=== PATIENT | male | born 1950 | race Caucasian/White ===

== ENCOUNTER → 2023-12-11 14:43 | Outpatient (REF) | payer MEDICARE, OTHER, SELFPAY ==
[2023-12-11 09:53] LABS: % Basophils 0.4 % (0-2); % Eosinophils 1.7 % (0-6); % Immature Granulocytes 0.2 % (0-0.5); % Lymphocytes 32.6 % (20.5-51.1); % Monocytes 12.5 % (1.7-9.3); % Neutrophils 52.6 % (42.2-75.2); Absolute Eosinophils 0.1 10^3/uL (0-0.7); Absolute Lymphocytes 1.5 10^3/uL (1.2-3.4); Absolute Monocytes 0.6 10^3/uL (0.1-0.6); Absolute Neutrophils 2.5 10^3/uL (1.4-6.5); Hematocrit 38.1 % (39.0-52.0); Hemoglobin 13.2 g/dL (13.0-18.0); Mean Corp Hgb Conc. 34.6 g/dL (33.0-37.0); Mean Corpuscular Hgb 31.5 pg (27.0-31.0); Mean Corpuscular Volume 90.9 fL (80.0-94.0); Mean Platelet Volume 10.1 fL (7.4-10.4); Nucleated Red Blood Cells % 0 % (-); Platelet Count 177 10^3/uL (130-400); Red Blood Cell Count 4.19 10^6/uL (4.70-6.10); Red Cell Dist. Width 12.3 % (11.5-14.5); White Blood Cell Count 4.7 10^3/uL (4.8-10.8)
[2023-12-11 10:20] LABS: Iron 113 ug/dl (49-181)
[2023-12-11 10:29] LABS: Percent Saturation 42 % (20-50); Total Iron Binding Capacity 267 ug/dl (261-462)
[2023-12-11 10:48] LABS: CEA 2.82 ng/ml; PSA, Total - Diagnostic < 0.06 ng/ml (0.0-4.0)
[2023-12-11 10:55] LABS: Ferritin 69.6 ng/ml (17.9-464.0)
== END ==
LOC: OIDL 14:43
PROVIDERS: ATTENDING PHYSICIAN Internal Medicine Hematology & Oncology
DX: C20 Malignant neoplasm of rectum (principal); C61 Malignant neoplasm of prostate
CPT/HCPCS: 82378; 82728; 83540; 83550; 84153; 85025

== ENCOUNTER 2023-12-21 05:53 | Day surgery (SDC) | payer MEDICARE, OTHER, SELFPAY ==
[2023-12-21 06:46] VITALS: BMI 25.0
[2023-12-21 07:00] VITALS: BP 146/77
[2023-12-21 07:18] VITALS: BMI 25.0
[2023-12-21 09:31] VITALS: BP 105/77
[2023-12-21 09:46] VITALS: BP 123/72
== END 2023-12-21 10:13 | disposition home or self-care (01) ==
LOC: SDS 05:53
PROVIDERS: ATTENDING PHYSICIAN Internal Medicine Gastroenterology
DX: Z12.11 Encounter for screening for malignant neoplasm of colon (principal); Z85.048 Personal history of other malignant neoplasm of rectum, rectosigmoid junction, and anus; K57.30 Diverticulosis of large intestine without perforation or abscess without bleeding; K64.0 First degree hemorrhoids; K62.89 Other specified diseases of anus and rectum; D12.3 Benign neoplasm of transverse colon; K63.5 Polyp of colon
CPT/HCPCS: 45385; 45380; 88305

== ENCOUNTER 2024-01-05 07:12 | Outpatient (REF) | payer MEDICARE, OTHER, SELFPAY ==
[2024-01-05] VITALS (15 sets, daily range): BP systolic 58–147; BP diastolic 71–87
[2024-01-05 07:49] LABS: INR 0.96; PT 12.6 Sec (11.4-14.6)
== END 2024-01-05 11:35 | disposition home or self-care (01) ==
LOC: RADI 07:12
PROVIDERS: ATTENDING PHYSICIAN Internal Medicine Hematology & Oncology; FAMILY PHYSICIAN Nurse Practitioner Family
DX: C78.7 Secondary malignant neoplasm of liver and intrahepatic bile duct (principal); D68.8 Other specified coagulation defects; Z85.048 Personal history of other malignant neoplasm of rectum, rectosigmoid junction, and anus; Z85.46 Personal history of malignant neoplasm of prostate
CPT/HCPCS: 88307; 36415; 47000; 71045; 76942; 85610; 88333; 88341; 88342; 99152; 99153

== ENCOUNTER → 2024-01-10 07:42 | Outpatient (REF) | payer MEDICARE, OTHER, SELFPAY | LOC: MRI 07:42 | PROVIDERS: ATTENDING PHYSICIAN Internal Medicine Hematology & Oncology; FAMILY PHYSICIAN Nurse Practitioner Family | DX: C20 Malignant neoplasm of rectum (principal); C61 Malignant neoplasm of prostate | CPT/HCPCS: 74183; A9575 ==

== ENCOUNTER → 2024-01-19 08:39 | Outpatient (REF) | payer MEDICARE, OTHER, SELFPAY ==
[2024-01-19 09:22] LABS: % Basophils 0.4 % (0-2); % Eosinophils 1.3 % (0-6); % Immature Granulocytes 0.2 % (0-0.5); % Lymphocytes 30.8 % (20.5-51.1); % Monocytes 10.3 % (1.7-9.3); Absolute Eosinophils 0.1 10^3/uL (0-0.7); Absolute Lymphocytes 1.5 10^3/uL (1.2-3.4); Absolute Monocytes 0.5 10^3/uL (0.1-0.6); Absolute Neutrophils 2.7 10^3/uL (1.4-6.5); Hemoglobin 12.7 g/dL (13.0-18.0); Mean Corp Hgb Conc. 34.3 g/dL (33.0-37.0); Mean Corpuscular Hgb 31.1 pg (27.0-31.0); Mean Corpuscular Volume 90.7 fL (80.0-94.0); Nucleated Red Blood Cells % 0 % (-); Platelet Count 170 10^3/uL (130-400); Red Blood Cell Count 4.08 10^6/uL (4.70-6.10); Red Cell Dist. Width 12.3 % (11.5-14.5); White Blood Cell Count 4.8 10^3/uL (4.8-10.8)
[2024-01-19 09:44] LABS: ALT (SGPT) 19 U/L (0-50); AST (SGOT) 25 U/L (17-59); Albumin 4.1 g/dl (3.5-5.0); Alkaline Phosphatase 85 U/L (38-126); Blood Urea Nitrogen 24 mg/dl (9-20); Calcium 9.8 mg/dl (8.4-10.2); Carbon Dioxide 27 mmol/L (22-30); Chloride 107 mmol/L (98-107); Glucose 122 mg/dl (70-99); Potassium 4.1 mmol/L (3.5-5.1); Sodium 141 mmol/L (135-145); Total Bilirubin 0.6 mg/dl (0.2-1.3); Total Protein 6.8 g/dl (6.3-8.2); eGFR > 60.00
== END ==
LOC: REG 08:39
PROVIDERS: ATTENDING PHYSICIAN Internal Medicine Hematology & Oncology; FAMILY PHYSICIAN Nurse Practitioner Family
DX: C20 Malignant neoplasm of rectum (principal); C61 Malignant neoplasm of prostate
CPT/HCPCS: 36415; 80053; 82378; 85025

== ENCOUNTER → 2024-01-24 11:58 | Outpatient (REF) | payer MEDICARE, OTHER, SELFPAY | LOC: DHCBC/DCA 11:58 | PROVIDERS: ATTENDING PHYSICIAN Internal Medicine; FAMILY PHYSICIAN Nurse Practitioner Family | DX: R06.02 Shortness of breath (principal); I48.0 Paroxysmal atrial fibrillation; I49.3 Ventricular premature depolarization; R94.31 Abnormal electrocardiogram [ECG] [EKG]; R07.9 Chest pain, unspecified | CPT/HCPCS: 78452; 93017; A9500 ==

== ENCOUNTER → 2024-01-26 08:09 | Outpatient (REF) | payer MEDICARE, OTHER, SELFPAY | LOC: DHCBC MAIN 08:09 | PROVIDERS: ATTENDING PHYSICIAN Internal Medicine; FAMILY PHYSICIAN Nurse Practitioner Family | DX: R06.02 Shortness of breath (principal); I48.0 Paroxysmal atrial fibrillation; I49.3 Ventricular premature depolarization | CPT/HCPCS: 93306 ==

== ENCOUNTER → 2024-02-02 06:35 | Outpatient (REF) | payer MEDICARE, OTHER, SELFPAY ==
[2024-02-02 07:21] LABS: % Basophils 0.4 % (0-2); % Eosinophils 1.2 % (0-6); % Immature Granulocytes 6.8 % (0-0.5); % Lymphocytes 31.4 % (20.5-51.1); % Monocytes 13.3 % (1.7-9.3); % Neutrophils 46.9 % (42.2-75.2); Absolute Eosinophils 0.1 10^3/uL (0-0.7); Absolute Immature Granulocytes 0.6 10^3/uL (0-0.05); Absolute Lymphocytes 2.6 10^3/uL (1.2-3.4); Absolute Monocytes 1.1 10^3/uL (0.1-0.6); Absolute Neutrophils 3.9 10^3/uL (1.4-6.5); Hematocrit 36.6 % (39.0-52.0); Hemoglobin 12.4 g/dL (13.0-18.0); Mean Corp Hgb Conc. 33.9 g/dL (33.0-37.0); Mean Corpuscular Volume 91.5 fL (80.0-94.0); Mean Platelet Volume 10.5 fL (7.4-10.4); Nucleated Red Blood Cells % 0.2 % (-); Platelet Count 154 10^3/uL (130-400); Red Cell Dist. Width 12.7 % (11.5-14.5); White Blood Cell Count 8.2 10^3/uL (4.8-10.8)
[2024-02-02 07:54] LABS: ALT (SGPT) 24 U/L (0-50); AST (SGOT) 27 U/L (17-59); Albumin 4.2 g/dl (3.5-5.0); Alkaline Phosphatase 119 U/L (38-126); Blood Urea Nitrogen 19 mg/dl (9-20); Calcium 9.8 mg/dl (8.4-10.2); Carbon Dioxide 29 mmol/L (22-30); Chloride 106 mmol/L (98-107); Glucose 104 mg/dl (70-99); Potassium 4.4 mmol/L (3.5-5.1); Sodium 144 mmol/L (135-145); Total Bilirubin 0.4 mg/dl (0.2-1.3); Total Protein 6.7 g/dl (6.3-8.2); eGFR > 60.00
== END ==
LOC: REG 06:35
PROVIDERS: ATTENDING PHYSICIAN Internal Medicine Hematology & Oncology; FAMILY PHYSICIAN Nurse Practitioner Family; REFERRING PHYSICIAN Internal Medicine
DX: C20 Malignant neoplasm of rectum (principal); C61 Malignant neoplasm of prostate
CPT/HCPCS: 36415; 80053; 85025

== ENCOUNTER → 2024-02-16 06:57 | Outpatient (REF) | payer MEDICARE, OTHER, SELFPAY ==
[2024-02-16 07:43] LABS: ALT (SGPT) 28 U/L (0-50); AST (SGOT) 23 U/L (17-59); Albumin 3.9 g/dl (3.5-5.0); Alkaline Phosphatase 128 U/L (38-126); Blood Urea Nitrogen 19 mg/dl (9-20); Carbon Dioxide 28 mmol/L (22-30); Chloride 106 mmol/L (98-107); Glucose 95 mg/dl (70-99); Potassium 3.5 mmol/L (3.5-5.1); Sodium 141 mmol/L (135-145); Total Bilirubin 0.3 mg/dl (0.2-1.3); Total Protein 6.3 g/dl (6.3-8.2); eGFR > 60.00
[2024-02-16 07:46] LABS: % Basophils 0.6 % (0-2); % Eosinophils 1.4 % (0-6); % Immature Granulocytes 6.4 % (0-0.5); % Lymphocytes 25.9 % (20.5-51.1); % Monocytes 17.4 % (1.7-9.3); % Neutrophils 48.3 % (42.2-75.2); Absolute Eosinophils 0.1 10^3/uL (0-0.7); Absolute Immature Granulocytes 0.5 10^3/uL (0-0.05); Absolute Lymphocytes 1.9 10^3/uL (1.2-3.4); Absolute Monocytes 1.3 10^3/uL (0.1-0.6); Absolute Neutrophils 3.5 10^3/uL (1.4-6.5); Hematocrit 32.6 % (39.0-52.0); Hemoglobin 11.2 g/dL (13.0-18.0); Mean Corp Hgb Conc. 34.4 g/dL (33.0-37.0); Mean Corpuscular Hgb 31.6 pg (27.0-31.0); Mean Corpuscular Volume 92.1 fL (80.0-94.0); Nucleated Red Blood Cells % 0 % (-); Platelet Count 147 10^3/uL (130-400); Red Blood Cell Count 3.54 10^6/uL (4.70-6.10); Red Cell Dist. Width 13.5 % (11.5-14.5); White Blood Cell Count 7.2 10^3/uL (4.8-10.8)
== END ==
LOC: REG 06:57
PROVIDERS: ATTENDING PHYSICIAN Internal Medicine Hematology & Oncology; FAMILY PHYSICIAN Nurse Practitioner Family; REFERRING PHYSICIAN Internal Medicine
DX: C20 Malignant neoplasm of rectum (principal); C61 Malignant neoplasm of prostate
CPT/HCPCS: 36415; 80053; 85025

== ENCOUNTER → 2024-02-20 15:26 | Outpatient (REF) | payer MEDICARE, OTHER, SELFPAY ==
[2024-02-20 10:04] LABS: CEA 1.48 ng/ml
== END ==
LOC: OIDL 15:26
PROVIDERS: ATTENDING PHYSICIAN Internal Medicine Hematology & Oncology
DX: C20 Malignant neoplasm of rectum (principal)
CPT/HCPCS: 82378

== ENCOUNTER → 2024-03-01 06:27 | Outpatient (REF) | payer MEDICARE, OTHER, SELFPAY ==
[2024-03-01 08:18] LABS: Hematocrit 35.1 % (39.0-52.0); Hemoglobin 11.3 g/dL (13.0-18.0); Mean Corp Hgb Conc. 32.2 g/dL (33.0-37.0); Mean Corpuscular Hgb 31.2 pg (27.0-31.0); Mean Platelet Volume 11.5 fL (7.4-10.4); Platelet Count 175 10^3/uL (130-400); Red Blood Cell Count 3.62 10^6/uL (4.70-6.10); Red Cell Dist. Width 15.1 % (11.5-14.5); White Blood Cell Count 8.1 10^3/uL (4.8-10.8)
[2024-03-01 08:53] LABS: Absolute Neutrophils -Man Diff 5.5 10^3/uL (1.4-6.5); Band Neutrophils 11 % (0-3); Lymphocytes 21 % (20-51); Monocytes 11 % (2-9); Normal RBC Morphology Yes; Platelets Checked Yes; Segmented Neutrophils 57 % (42-75); Total Cells Counted 100
[2024-03-01 09:12] LABS: ALT (SGPT) 30 U/L (0-50); AST (SGOT) 25 U/L (17-59); Albumin 3.9 g/dl (3.5-5.0); Alkaline Phosphatase 165 U/L (38-126); Blood Urea Nitrogen 17 mg/dl (9-20); Calcium 9.6 mg/dl (8.4-10.2); Carbon Dioxide 29 mmol/L (22-30); Chloride 107 mmol/L (98-107); Glucose 103 mg/dl (70-99); HDL Cholesterol 38 mg/dl; LDL Cholesterol, Calculated 77 mg/dl; Potassium 4.9 mmol/L (3.5-5.1); Sodium 141 mmol/L (135-145); Total Bilirubin 0.4 mg/dl (0.2-1.3); Total Cholesterol 128 mg/dl (50-199); Total Protein 6.3 g/dl (6.3-8.2); Triglyceride 67 mg/dl (10-149); Very Low Density Lipoprotein 13 mg/dl (0-30); eGFR > 60.00
== END ==
LOC: REG 06:27
PROVIDERS: ATTENDING PHYSICIAN Internal Medicine Hematology & Oncology; FAMILY PHYSICIAN Nurse Practitioner Family; REFERRING PHYSICIAN Internal Medicine
DX: C20 Malignant neoplasm of rectum (principal); C61 Malignant neoplasm of prostate; E78.5 Hyperlipidemia, unspecified
CPT/HCPCS: 36415; 80053; 80061; 85025

== ENCOUNTER → 2024-03-05 13:31 | Outpatient (REF) | payer MEDICARE, OTHER, SELFPAY ==
[2024-03-05 12:03] LABS: Protein/creatinine Ratio 0.7; Urine Protein 14 mg/dl
== END ==
LOC: OIDL 13:31
PROVIDERS: ATTENDING PHYSICIAN Nurse Practitioner Adult Health
DX: C20 Malignant neoplasm of rectum (principal)
CPT/HCPCS: 82570; 84156

== ENCOUNTER → 2024-03-15 06:28 | Outpatient (REF) | payer MEDICARE, OTHER, SELFPAY ==
[2024-03-15 07:42] LABS: % Basophils 0.9 % (0-2); % Eosinophils 1.7 % (0-6); % Immature Granulocytes 0.7 % (0-0.5); % Lymphocytes 19.2 % (20.5-51.1); % Monocytes 14.5 % (1.7-9.3); Absolute Basophils 0.1 10^3/uL (0-0.2); Absolute Eosinophils 0.1 10^3/uL (0-0.7); Absolute Immature Granulocytes 0.1 10^3/uL (0-0.05); Absolute Lymphocytes 1.6 10^3/uL (1.2-3.4); Absolute Monocytes 1.2 10^3/uL (0.1-0.6); Absolute Neutrophils 5.3 10^3/uL (1.4-6.5); Hematocrit 35.4 % (39.0-52.0); Hemoglobin 11.5 g/dL (13.0-18.0); Mean Corp Hgb Conc. 32.5 g/dL (33.0-37.0); Mean Corpuscular Hgb 30.8 pg (27.0-31.0); Mean Corpuscular Volume 94.9 fL (80.0-94.0); Mean Platelet Volume 11.3 fL (7.4-10.4); Nucleated Red Blood Cells % 0 % (-); Platelet Count 158 10^3/uL (130-400); Red Blood Cell Count 3.73 10^6/uL (4.70-6.10); Red Cell Dist. Width 15.9 % (11.5-14.5); White Blood Cell Count 8.5 10^3/uL (4.8-10.8)
[2024-03-15 08:37] LABS: ALT (SGPT) 29 U/L (0-50); AST (SGOT) 24 U/L (17-59); Albumin 4.1 g/dl (3.5-5.0); Alkaline Phosphatase 181 U/L (38-126); Blood Urea Nitrogen 23 mg/dl (9-20); Calcium 9.7 mg/dl (8.4-10.2); Carbon Dioxide 24 mmol/L (22-30); Chloride 106 mmol/L (98-107); Glucose 101 mg/dl (70-99); Potassium 4.6 mmol/L (3.5-5.1); Sodium 141 mmol/L (135-145); Total Bilirubin 0.4 mg/dl (0.2-1.3); Total Protein 6.6 g/dl (6.3-8.2); eGFR > 60.00
== END ==
LOC: REG 06:28
PROVIDERS: ATTENDING PHYSICIAN Internal Medicine Hematology & Oncology; FAMILY PHYSICIAN Internal Medicine
DX: C20 Malignant neoplasm of rectum (principal); C61 Malignant neoplasm of prostate
CPT/HCPCS: 36415; 80053; 85025

== ENCOUNTER → 2024-03-29 06:29 | Outpatient (REF) | payer MEDICARE, OTHER, SELFPAY ==
[2024-03-29 08:10] LABS: % Basophils 0.7 % (0-2); % Eosinophils 1.3 % (0-6); % Immature Granulocytes 0.9 % (0-0.5); % Lymphocytes 16.1 % (20.5-51.1); % Monocytes 11.4 % (1.7-9.3); % Neutrophils 69.6 % (42.2-75.2); Absolute Basophils 0.1 10^3/uL (0-0.2); Absolute Eosinophils 0.1 10^3/uL (0-0.7); Absolute Immature Granulocytes 0.1 10^3/uL (0-0.05); Absolute Lymphocytes 1.5 10^3/uL (1.2-3.4); Absolute Neutrophils 6.3 10^3/uL (1.4-6.5); Hematocrit 33.4 % (39.0-52.0); Mean Corp Hgb Conc. 32.9 g/dL (33.0-37.0); Mean Corpuscular Hgb 31.9 pg (27.0-31.0); Mean Corpuscular Volume 96.8 fL (80.0-94.0); Mean Platelet Volume 12.1 fL (7.4-10.4); Nucleated Red Blood Cells % 0 % (-); Platelet Count 121 10^3/uL (130-400); Red Blood Cell Count 3.45 10^6/uL (4.70-6.10); Red Cell Dist. Width 16.1 % (11.5-14.5); White Blood Cell Count 9.1 10^3/uL (4.8-10.8)
[2024-03-29 09:11] LABS: ALT (SGPT) 31 U/L (0-50); AST (SGOT) 23 U/L (17-59); Albumin 4.2 g/dl (3.5-5.0); Alkaline Phosphatase 170 U/L (38-126); Blood Urea Nitrogen 28 mg/dl (9-20); Calcium 9.5 mg/dl (8.4-10.2); Carbon Dioxide 26 mmol/L (22-30); Chloride 107 mmol/L (98-107); Glucose 97 mg/dl (70-99); Sodium 142 mmol/L (135-145); Total Bilirubin 0.4 mg/dl (0.2-1.3); Total Protein 6.6 g/dl (6.3-8.2); eGFR > 60.00
== END ==
LOC: REG 06:29
PROVIDERS: ATTENDING PHYSICIAN Internal Medicine Hematology & Oncology; FAMILY PHYSICIAN Internal Medicine
DX: C20 Malignant neoplasm of rectum (principal); C61 Malignant neoplasm of prostate
CPT/HCPCS: 36415; 80053; 85025

== ENCOUNTER → 2024-04-12 07:33 | Outpatient (REF) | payer MEDICARE, OTHER, SELFPAY ==
[2024-04-12 08:30] LABS: % Basophils 0.5 % (0-2); % Lymphocytes 15.3 % (20.5-51.1); % Monocytes 10.8 % (1.7-9.3); % Neutrophils 71.4 % (42.2-75.2); Absolute Basophils 0.1 10^3/uL (0-0.2); Absolute Eosinophils 0.1 10^3/uL (0-0.7); Absolute Immature Granulocytes 0.1 10^3/uL (0-0.05); Absolute Lymphocytes 1.8 10^3/uL (1.2-3.4); Absolute Monocytes 1.3 10^3/uL (0.1-0.6); Absolute Neutrophils 8.2 10^3/uL (1.4-6.5); Hematocrit 35.7 % (39.0-52.0); Hemoglobin 11.6 g/dL (13.0-18.0); Mean Corp Hgb Conc. 32.5 g/dL (33.0-37.0); Mean Corpuscular Hgb 31.7 pg (27.0-31.0); Mean Corpuscular Volume 97.5 fL (80.0-94.0); Mean Platelet Volume 11.4 fL (7.4-10.4); Nucleated Red Blood Cells % 0 % (-); Platelet Count 145 10^3/uL (130-400); Red Blood Cell Count 3.66 10^6/uL (4.70-6.10); Red Cell Dist. Width 17.5 % (11.5-14.5); White Blood Cell Count 11.6 10^3/uL (4.8-10.8)
[2024-04-12 08:54] LABS: ALT (SGPT) 36 U/L (0-50); AST (SGOT) 28 U/L (17-59); Albumin 4.1 g/dl (3.5-5.0); Alkaline Phosphatase 184 U/L (38-126); Blood Urea Nitrogen 17 mg/dl (9-20); Calcium 9.5 mg/dl (8.4-10.2); Carbon Dioxide 28 mmol/L (22-30); Chloride 106 mmol/L (98-107); Glucose 95 mg/dl (70-99); Potassium 4.5 mmol/L (3.5-5.1); Sodium 143 mmol/L (135-145); Total Bilirubin 0.3 mg/dl (0.2-1.3); Total Protein 6.4 g/dl (6.3-8.2); eGFR > 60.00
== END ==
LOC: REG 07:33
PROVIDERS: ATTENDING PHYSICIAN Internal Medicine Hematology & Oncology; REFERRING PHYSICIAN Internal Medicine
DX: C20 Malignant neoplasm of rectum (principal); C61 Malignant neoplasm of prostate
CPT/HCPCS: 36415; 80053; 85025

== ENCOUNTER → 2024-04-18 07:32 | Outpatient (REF) | payer MEDICARE, OTHER, SELFPAY | LOC: MRI 07:32 | PROVIDERS: ATTENDING PHYSICIAN Surgery; FAMILY PHYSICIAN Nurse Practitioner Family; REFERRING PHYSICIAN Internal Medicine Hematology & Oncology | DX: D37.6 Neoplasm of uncertain behavior of liver, gallbladder and bile ducts (principal) | CPT/HCPCS: 74183; A9575 ==

== ENCOUNTER → 2024-04-26 06:22 | Outpatient (REF) | payer MEDICARE, OTHER, SELFPAY ==
[2024-04-26 07:40] LABS: Hematocrit 35.9 % (39.0-52.0); Hemoglobin 11.9 g/dL (13.0-18.0); Mean Corp Hgb Conc. 33.1 g/dL (33.0-37.0); Mean Corpuscular Hgb 33.1 pg (27.0-31.0); Mean Platelet Volume 11.9 fL (7.4-10.4); Platelet Count 130 10^3/uL (130-400); Red Blood Cell Count 3.59 10^6/uL (4.70-6.10); Red Cell Dist. Width 16.6 % (11.5-14.5); White Blood Cell Count 6.4 10^3/uL (4.8-10.8)
[2024-04-26 08:16] LABS: ALT (SGPT) 24 U/L (0-50); AST (SGOT) 21 U/L (17-59); Albumin 4.3 g/dl (3.5-5.0); Alkaline Phosphatase 167 U/L (38-126); Blood Urea Nitrogen 20 mg/dl (9-20); Calcium 9.7 mg/dl (8.4-10.2); Carbon Dioxide 28 mmol/L (22-30); Chloride 106 mmol/L (98-107); Glucose 103 mg/dl (70-99); Potassium 4.4 mmol/L (3.5-5.1); Sodium 142 mmol/L (135-145); Total Bilirubin 0.3 mg/dl (0.2-1.3); Total Protein 6.7 g/dl (6.3-8.2); eGFR > 60.00
== END ==
LOC: REG 06:22
PROVIDERS: ATTENDING PHYSICIAN Internal Medicine Hematology & Oncology; OTHER PHYSICIAN Internal Medicine; REFERRING PHYSICIAN Surgery
DX: C20 Malignant neoplasm of rectum (principal); C61 Malignant neoplasm of prostate
CPT/HCPCS: 36415; 80053; 85027

== ENCOUNTER → 2024-04-30 11:03 | Outpatient (REF) | payer MEDICARE, OTHER, SELFPAY | LOC: HWRCS 11:03 | PROVIDERS: ATTENDING PHYSICIAN Nurse Practitioner; FAMILY PHYSICIAN Nurse Practitioner Family | DX: I42.0 Dilated cardiomyopathy (principal); E78.00 Pure hypercholesterolemia, unspecified; I48.0 Paroxysmal atrial fibrillation | CPT/HCPCS: 93306 ==

== ENCOUNTER → 2024-05-08 06:29 | Day surgery (SDC) | payer MEDICARE, OTHER, SELFPAY | LOC: GI 06:29 | PROVIDERS: ATTENDING PHYSICIAN Surgery | DX: Z08 Encounter for follow-up examination after completed treatment for malignant neoplasm (principal); Z85.048 Personal history of other malignant neoplasm of rectum, rectosigmoid junction, and anus | CPT/HCPCS: 45330 ==

== ENCOUNTER → 2024-05-17 06:35 | Outpatient (REF) | payer MEDICARE, OTHER, SELFPAY ==
[2024-05-17 07:51] LABS: % Basophils 0.5 % (0-2); % Eosinophils 0.9 % (0-6); % Immature Granulocytes 0.3 % (0-0.5); % Lymphocytes 18.7 % (20.5-51.1); % Monocytes 13.4 % (1.7-9.3); % Neutrophils 66.2 % (42.2-75.2); Absolute Eosinophils 0.1 10^3/uL (0-0.7); Absolute Lymphocytes 1.2 10^3/uL (1.2-3.4); Absolute Monocytes 0.9 10^3/uL (0.1-0.6); Absolute Neutrophils 4.3 10^3/uL (1.4-6.5); Hematocrit 33.4 % (39.0-52.0); Hemoglobin 11.2 g/dL (13.0-18.0); Mean Corp Hgb Conc. 33.5 g/dL (33.0-37.0); Mean Corpuscular Hgb 32.7 pg (27.0-31.0); Mean Corpuscular Volume 97.4 fL (80.0-94.0); Nucleated Red Blood Cells % 0 % (-); Platelet Count 175 10^3/uL (130-400); Red Blood Cell Count 3.43 10^6/uL (4.70-6.10); Red Cell Dist. Width 15.2 % (11.5-14.5); White Blood Cell Count 6.5 10^3/uL (4.8-10.8)
[2024-05-17 08:14] LABS: ALT (SGPT) 20 U/L (0-50); AST (SGOT) 24 U/L (17-59); Albumin 4.1 g/dl (3.5-5.0); Alkaline Phosphatase 92 U/L (38-126); Blood Urea Nitrogen 17 mg/dl (9-20); Calcium 9.4 mg/dl (8.4-10.2); Carbon Dioxide 25 mmol/L (22-30); Chloride 104 mmol/L (98-107); Glucose 99 mg/dl (70-99); Potassium 4.5 mmol/L (3.5-5.1); Sodium 138 mmol/L (135-145); Total Bilirubin 0.6 mg/dl (0.2-1.3); Total Protein 6.4 g/dl (6.3-8.2); eGFR > 60.00
== END ==
LOC: REG 06:35
PROVIDERS: ATTENDING PHYSICIAN Internal Medicine Hematology & Oncology; FAMILY PHYSICIAN Nurse Practitioner Family; OTHER PHYSICIAN Surgery; REFERRING PHYSICIAN Internal Medicine
DX: C20 Malignant neoplasm of rectum (principal); C61 Malignant neoplasm of prostate
CPT/HCPCS: 36415; 80053; 85025

== ENCOUNTER 2024-06-25 08:58 | Inpatient (IN) | payer MEDICARE, OTHER, SELFPAY ==
[2024-06-25] VITALS (13 sets, daily range): BP systolic 126–164; BP diastolic 59–91; BMI 24.6
[2024-06-25] MEDS: HEPARIN 5000 UNITS SC (09:33)
[2024-06-25] MEDS: NEURONTIN 300 MG PO (09:33)
[2024-06-25] MEDS: NORMOSOL-R/PLASMALYTE-A 1000 IV (09:42)
--- NOTE | 2024-06-25 12:24 | CON.INTV ---
Consultation
Consultation Request
Date/Time Consultation Requested: 06/25/2024
Date/Time Consultation Performed: 06/25/2024 - 1220
Requesting Provider: Dr. Good
Performing Provider: Dr. Deleon
Reason for Consultation: s/p liver resection
Medical History
-
Chief Complaint: Elective liver resection
History of Present Illness:
73-year-old male with a past medical history of synchronous rectal cancer + prostate cancer (Dx in 2021) s/p total neoadjuvant therapy + chemotherapy/XRT currently on Lupron hypercholesterolemia, dilated cardiomyopathy, and paroxysmal A-fib on
Eliquis who presents for liver resection. Whole-body PET/CT from 12/20/2023 showed a 3.4cm FDG avid lesion in the right hepatic lobe consistent with metastatic disease. On 01/05/[address]-guided liver biopsy which was consistent with
metastatic colorectal adenocarcinoma. Subsequent abdominal MRI on 01/10/2024 showed a solitary posterior right hepatic lobe metastatic lesion measuring up to 3.4 cm with no additional suspicious hepatic lesions. Follow-up MRI of the abdomen on
04/18/2024 showed interval decrease in size of right hepatic lesion now measuring 1.7 cm. He is chemotherapy is currently on hold for liver resection. He has met with surgical oncologist Dr. Good on 05/24/2024 and reviewed the risks and benefits of
hepatic resection. Today he underwent liver resection with no immediate complications and was transferred to the ICU postoperatively. P[employer] Up Copy Camera Operator services now consulted for additional management/recommendations.
When I saw the patient he was in bed in no acute distress. Heart rate 69, saturating 93% on room air, with BP via NIBP: 130/80 and BP via left radial A-line: 151/66. He has some tenderness in his right upper quadrant but denies chest pain, [place],
shortness of breath, back pain, nausea, fevers or chills.
PMHx: Synchronous rectal cancer + prostate cancer (Dx in 2021) s/p total neoadjuvant therapy + chemotherapy/XRT currently on Lupron, hypercholesterolemia, dilated cardiomyopathy, paroxysmal A-fib (s/p bowel prep for c-scope) on Eliquis
PSHx: Hernia repair as a child, polypectomy, prostate biopsy (November 2021)
Past Medical History
Past Medical History: Other (Above as per HPI)
Past Surgical History: Other (Above as per HPI)
Social History
Tobacco: Former Smoker (Quit on 03/07/2014 with 40 pack-year Hx (1PPD x 40 years))
Alcohol: Occasional
Drug: None
Family History
Family History: CAD (Father + maternal grandfather) and Other (Mother: Alzheimer's dementia)
Allergies / Home Medications
Allergies
Allergy/AdvReac Type Severity Reaction Status Date / Time
aspirin Allergy baby Verified 06/25/24 09:00
aspirin -
'just
doesn't
feel good'
oxaliplatin Allergy Unknown Verified 06/25/24 09:00
Home Medications
�Medication �Instructions �Recorded �Confirmed �Last Taken �Type
leuprolide acetate (6 month) 45 mg 3.75 mg IM [id number] 04/08/22 05/23/24 12/12/23 History
intramuscular syringe kit (Lupron
Depot)
apixaban 2.5 mg tablet (Eliquis) 5 mg PO BID 06/25/24 06/25/24 06/22/24 History
lidocaine-prilocaine 2.5 %-2.5 % 1 applic topical PRN PRN numbing 06/25/24 06/25/24 06/25/24 07:30 History
topical cream
lisinopril 5 mg tablet 5 mg PO DAILY 06/25/24 06/25/24 06/25/24 07:30 History
metoprolol succinate 25 mg capsule 25 mg PO BID 06/25/24 06/25/24 06/25/24 07:30 History
sprinkle, ext. release 24 hr
rosuvastatin 10 mg tablet 10 mg PO DAILY 06/25/24 06/25/24 06/24/24 08:00 History
Review of Systems
-
History Source: Patient
All other systems: Negative unless noted
Vitals / Labs / Diagnostic Testing
Vital Signs
Temp Pulse Resp BP Pulse Ox
96.9 F L 66 16 164/91 100
06/25/24 09:23 06/25/24 09:23 06/25/24 09:23 06/25/24 09:23 06/25/24 09:23
Diagnostic Testing:
Physical Exam
-
HEENT: Normocephalic and Anicteric
Cardiovascular: S1/S2 and Peripheral Edema (negative)
Respiratory: Clear, Wheeze (negative), Rales (negative), Rhonchi (negative) and Non-Labored Respirations
GI: Soft, Non Distended, Tender (RUQ) and Normal Bowel Sounds
Neurology: Awake, Alert and Tremors (negative)
Skin: Warm and Dry
General: Respiratory Distress (negative), Chills (negative) and Sweats (negative)
Assessment
-
Assessment: 73-year-old male with a past medical history of synchronous rectal cancer + prostate cancer (Dx in 2021) s/p total neoadjuvant therapy + chemotherapy/XRT currently on Lupron hypercholesterolemia, dilated cardiomyopathy, and paroxysmal
A-fib on Eliquis who presents for liver resection. Whole-body PET/CT from 12/20/2023 showed a 3.4cm FDG avid lesion in the right hepatic lobe consistent with metastatic disease. On 01/05/[address]-guided liver biopsy which was
consistent with metastatic colorectal adenocarcinoma. Subsequent abdominal MRI on 01/10/2024 showed a solitary posterior right hepatic lobe metastatic lesion measuring up to 3.4 cm with no additional suspicious hepatic lesions. Follow-up MRI of the
abdomen on 04/18/2024 showed interval decrease in size of right hepatic lesion now measuring 1.7 cm. He is chemotherapy is currently on hold for liver resection. He has met with surgical oncologist Dr. Good on 05/24/2024 and reviewed the risks and
benefits of hepatic resection. Today he underwent liver resection with no immediate complications and was transferred to the ICU postoperatively. P[employer] Up Copy Camera Operator services now consulted for additional management/recommendations.
Chronic conditions SIGNAL FITTER: Synchronous rectal cancer + prostate cancer (Dx in 2021) s/p total neoadjuvant therapy + chemotherapy/XRT currently on Lupron, hypercholesterolemia, dilated cardiomyopathy/HFrEF, paroxysmal A-fib (s/p bowel prep for c-scope)
on Eliquis
Impression:
#Metastatic colorectal adenocarcinoma with liver metastasis s/p segment VII hepatic resection (POD #0)
#Synchronous rectal cancer + prostate cancer (diagnosed in 2021) s/p JAKE + chemotherapy/XRT currently on Lupron
#Paroxysmal A-fib (s/p bowel prep for colonoscopy) on Eliquis
#Former tobacco smoker (62-cypa-ryoq history, quit March 2014)
#Chronic HFrEF (LVEF: 20-25% via TTE from 04/30/2024)
Plan:
- Postoperative management as per surgical oncology
- Pain control
- Operative report from surgical oncology reviewed
- Aspiration precautions
- Follow up pathology from today's OR case
- Limit IVF given his chronic systolic CHF
- Maintain A-line and remove tomorrow assuming he remains HDN stable
- Maintain SpO2 >90-94%
- Maintain MAP>65
- Replete electrolytes with K>4, Mg>2
- Maintain euglycemia with goal BG 140-180
- prn nebulized bronchodilators - not currently bronchospastic
- Incentive spirometer encouraged 10x per hr for at least 4 hrs a day
- DVT ppx: SCDs for now; would start chemical DVT ppx tomorrow assuming clear to do so with surgery; he is Rx Eliquis at home
Of note, given his tobacco smoking history he may qualify for annual LDCT chest for lung cancer screening purposes. However given his active colorectal adenocarcinoma with mets to the liver, unclear if he qualifies for screening. Would defer to
his oncologist (Dr. Baker) in regards to future imaging studies of his chest that are obtained.
Critical care statement: A total of 40 minutes of critical care time was provided for this patient today. This includes management of unstable vital signs, evaluation of the patient at bedside, reviewing the patient's pertinent medical records
including radiographs, microbiology, laboratory evaluations, and discussion with primary team, consultants, pharmacy, nutrition, physical therapy, case management, charge nurse, critical care nursing, and respiratory therapy.
Data:
Abdominal MRI 04/18/2024:
Interval decrease in size of right hepatic lesion, which was previously biopsied, with pathology indicating metastatic colorectal adenocarcinoma.
Multiple stable hepatic cysts.
The pancreatic duct is slightly dilated within the head and neck of the pancreas, stable. Not mentioned above, there is a 5 mm cystic lesion within the body of the pancreas, which is stable. In a 73-year-old, consider follow-up MRI of the
abdomen/MRCP in 2 years with attention to the pancreas
--- NOTE | 2024-06-25 13:43 | W.IMMPOSTOP ---
Surgical Immed Post Op Note
-
Date of Operation: June 25, 2024
Preoperative Diagnosis: Segment VII hepatic metastatic tumor - C787
Postoperative Diagnosis: Same
Surgeon: Taz Good M.D.
Operation: Segment VII hepatic resection - [id number]
Anesthesia: General Anesthesia
Estimated Blood Loss: Minimal
Drains: None
Specimen: Hepatic segment VII containing the tumor with two deep margins
Findings: Hepatic segment VII tumor
Complications: None
Procedure:
The patient was taken to the operating room and placed in the usual supine position. After adequate general endotracheal anesthesia was established, the patient's abdomen was prepped and draped in the usual sterile fashion. At this time, a right
subcostal incision was made with a #10 blade, and this was taken through the skin into the subcutaneous tissue. The fascia was divided, and underlying muscles were also divided using electrocautery, and the abdomen was entered. Upon entering the
abdominal cavity, an exploration was performed. The liver was palpated. An obvious tumor in the segment 7 was identified. There were no other liver tumors or any evidence of peritoneal disease. At this time, an intraoperative ultrasound was
performed, and the tumor in segment 8 was identified and localized. Next, the right liver lobe was mobilized medially by placing the packs behind the liver and above the liver to bring segment 7 down and towards the middle. Another ultrasound was
performed and identified the tumor. At this time, segment 7 resection was performed by using an [employer] bipolar radiofrequency energy device by transecting the liver parenchyma and the vessels were carefully ligated using Harmonic Scalpel. The
big vessels were also ligated with #3-0 chromic suture. The liver segment VII tumor was completely resected and sent to pathology for gross margins, which revealed clean margins, except it came close to the 12 o'clock deep margins. The additional
margins were taken from the area. Hemostasis was performed by spraying the defect with Tisseel.
At this time, incision was closed. The posterior fascia was approximated with 1 Vicryl in a running fashion. The muscles were reapproximated with a 1 Vicryl in a running fashion. The anterior fascia was also approximated with 1 Vicryl in a running
fashion. The subcutaneous tissue was reapproximated with #3-0 Vicryl in a running fashion. The skin was approximated with #4-0 Monocryl in a running subcuticular fashion. The Steri-Strips and sterile dressings were applied. The patient was extubated
without any problems. The patient was transferred to the recovery room. The final needle, sponge, and instrument counts were correct.
--- NOTE | 2024-06-25 14:00 | HPS.HSE ---
Addendum entered and electronically signed by Héctor Greenwood MD 06/25/24 15:50:
73-year-old male with a past medical history of prostate cancer, rectal cancer with metastases to the liver, paroxysmal atrial fibrillation on Eliquis, dilated cardiomyopathy, and hypertension was placed in postsurgical observation after having
segment [address] Good on 06/25/24. Patient seen and examined in the PACU. Currently, he does report incisional abdominal pain. He reports having night sweats and intermittent fevers at home, was told that this is from his chemo.
Denies nausea, vomiting. No lightheadedness, no dizziness.
His hemoglobin is 10.8, with mild blood loss anemia from his surgery.
BMP reviewed, unremarkable.
AST and ALT are mildly elevated, suspect from his known metastatic liver disease versus postsurgical inflammation.
Monitor overnight, trend LFTs, provide pain control.
Cardiology following for cardiomyopathy and atrial fibrillation.
Recommend resuming Eliquis when cleared by Dr. Good.
I have personally seen and examined the patient, and agree with the plan of care as documented by JAYSON Horta
Advance care planning discussed, patient is a full code.
All other issues as outlined by the advanced care practitioner.
Total time spent to see the patient on the floor, examine the patient, review data and lab results, discuss treatment plan with patient, nursing staff around 76 minutes.
Original Note:
Family Physician
-
Family Physician: JAYSON Solis
Chief Complaint
-
Postop hepatic segment resection secondary to rectal cancer
History of Present Illness
73-year-old male status post hepatic segment resection for metastatic rectal cancer today by Dr. Good. According to postop records there is minimal blood loss 250 cc. Patient is awake alert oriented x 3 with occasional drowsiness as he is status
post anesthesia. Reports only mild discomfort over his right upper abdomen at surgical site. He states he held his Eliquis for the past 3 days he reports he received a subcutaneous heparin injection this a.m. prior to surgery. He was due to have
the initial surgery 45 days ago but had held his medications for unknown reason surgery was postponed for 30 days he states. He reports he was diagnosed with prostate and rectal cancer in 2021 status post radiation to both areas along with
chemotherapy. He reports a break from chemotherapy in end of December 2023 followed by an MRI of his abdomen which showed a mass in his liver. He went back on chemotherapy for 8 sessions which he finished in April 2024. He denies current headache,
fever, chills, chest pain, palpitations, shortness breath, cough, nausea, vomiting, diarrhea, urinary symptoms.
He is past medical history of prostate and rectal cancer Dx 2021 with rectal cancer mets to liver confirmed via biopsy on 01/05/2024, paroxysmal A-fib, dilated cardiomyopathy EF 20%.
Medical History
Past Medical History
Past Medical History: Reports Other
Additional Past Medical History:
prostate and rectal cancer Dx 2021 with rectal cancer mets to liver confirmed via biopsy on 01/05/2024
Prostate cancer status post radiation and chemo 2022
Rectal cancer status post radiation and chemo 2022
Liver mets Dx December status post chemo 8 sessions April 2024
Paroxysmal A-fib
dilated cardiomyopathy EF 20%
HTN
Past Surgical History: Reports Other
Additional Past Surgical History:
Hernia repair as child
Polypectomy
Hepatic segment VII resection for metastatic rectal cancer.
Social History
Tobacco: Former Smoker (30-year 1 pack a day quit 10 years ago)
Alcohol: None
Personal:
Living: With Family
Employment: Retired
Family History
Family History: Other ( Mother Alzheimer's, smoker, father 93 CAD-stents)
Allergies / Home Medications
Allergies reflects when Allergies were last updated in [facility].
Home Medications with original date entered in [facility]
Allergy/Medication List:
Allergies
Allergy/AdvReac Type Severity Reaction Status Date / Time
aspirin Allergy baby Verified 06/25/24 09:00
aspirin -
'just
doesn't
feel good'
oxaliplatin Allergy Unknown Verified 06/25/24 09:00
Home Medications
leuprolide acetate (6 month) 45 mg intramuscular syringe kit (Lupron Depot) 3.75 mg IM [id number] 04/08/22
apixaban 2.5 mg tablet (Eliquis) 5 mg PO BID 06/25/24
lidocaine-prilocaine 2.5 %-2.5 % topical cream 1 applic topical PRN PRN numbing 06/25/24
lisinopril 5 mg tablet 5 mg PO DAILY 06/25/24
metoprolol succinate 25 mg capsule sprinkle, ext. release 24 hr 25 mg PO BID 06/25/24
rosuvastatin 10 mg tablet 10 mg PO DAILY 06/25/24
Review of Systems
-
History Source: Patient
A 12 point ROS was completed and negative except as noted: Yes
Constitutional: Denies Fever, Fatigue or Chills
EENT: Denies Sore Throat or Runny Nose
Respiratory: Denies Cough or Trouble Breathing
Cardiac: Denies Chest Pain, Diaphoresis or Syncope
Abdomen/GI: Reports Abdominal Pain (mild right upper quadrant at surgical site); Denies Nausea, Vomiting, Diarrhea, Constipated, Bloody Stools or Black Stools
: Denies Dysuria, Frequency, Flank Pain, Incontinence, Difficulty Voiding or Urgency
Musculoskeletal: Denies Joint Pain or Edema
Skin: Denies Itching or Rash
Neurological: Denies Dizzy, Headache or Weakness
Endocrine: Reports No Symptoms
Hematologic/Lymphatic: Reports No Symptoms
Physical Exam
Vital Signs
Vital Signs
Temp Pulse Resp BP Pulse Ox
96.9 F L 66 16 164/91 100
06/25/24 09:23 06/25/24 09:23 06/25/24 09:23 06/25/24 09:23 06/25/24 09:23
Physical Exam
General: Conversant and Pain (Mild right upper quadrant at surgical site); No Fever or Chills
HEENT: NormoCephalic, Anicteric, PERRLA, Sultana Conjunctivae, No Ptosis and Other (Dry oral mucosa)
Respiratory: Clear; No Wheezes, Rales or Rhonchi
Cardiac: S1/S2 and Regular Rhythm; No Murmur, Rub, Gallop or Peripheral Edema
Breast: Deferred by me
GI: Soft, Non Distended, Normal Bowel Sounds and Tender (Mild right upper quadrant surgical site dressing is intact no surrounding ecchymosis or drainage)
Rectal: Deferred by Provider
Genito-urinary: Deferred by me
Musculoskeletal: No Clubbing, No Cyanosis and No Edema
Skin: Warm and Dry; No Rash
Neuro: AO x 3 (Slight drowsiness post anesthesia), Cranial Nerves Intact and No Sensory Deficits; No Slurred Speech, Facial Droop, Tremors or Sedated
Psych: Calm
Impression/Plan
-
Impression/plan:
ICU post recovery
#Hepatic segment VII resection for metastatic rectal cancer
#Rectal cancer confirmed via biopsy on 01/05/2024
-Consult Dr. Good
-CBC, CMP pending
Hgb 10.2
#Hx prostate and rectal cancer Dx 2021
#Prostate and rectal cancer Dx 2021 with rectal cancer mets to liver confirmed via biopsy on 01/05/2024
#Prostate cancer status post radiation and chemo 2022
#Rectal cancer status post radiation and chemo 2022
#Liver mets Dx December status post chemo 8 sessions April 2024
-Patient on Lupron every 6 months last FINAL dose he states was on 11/02/2023-he reports he was only to be on for 2 years
#Paroxysmal A-fib
-Consult Cardiology
-Eliquis resumption per surgery/cardiology recommendations
- cont Metoprolol 25 mg twice daily with hold parameters
#Hx dilated cardiomyopathy
I/O, daily weights
2D echo 04/03/2024: Severely reduced LV SF, EF 20-25%, mild MR
#HTN
BP 144/65
-Continue lisinopril 5 mg daily, metoprolol succinate twice daily with hold parameters
-Pending bmp
#HLD
Patient stopped Crestor 10 mg daily 2 weeks ago
#Former smoker
30 years 1 pack a day quit 10 years ago
DVT prophylaxis
SCDs
Full code
--- NOTE | 2024-06-25 14:02 | CON.CAR ---
Addendum entered and electronically signed by Scott Pandya MD 06/25/24 14:38:
I saw and examined the patient.
The METAL SPRAY OPERATOR's note was reviewed and I agree with the note.
Comment: 73-year-old male with a past medical history notable for stage IIIb prostate cancer (on Lupron), rectal cancer status post FOLFOX X and XRT, dilated cardiomyopathy, paroxysmal atrial fibrillation (on apixaban), dyslipidemia, and former
smoker who presented for liver resection. There were no intraoperative complications. Cardiology was consulted to assist with cardiac care in the postoperative setting.
- GDMT initiation (resistant to medications in past)
- Eliquis once OK from surgical perspective
Original Note:
Consultation
Consultation Request
Date/Time Consultation Requested: 06/25/2024 13:50
Date/Time Consultation Performed: 06/25/2024 14:00
Requesting Provider: Dr. Good
Performing Provider: JAYSON Emery for Dr. Pandya
Reason for Consultation: Cardiac care
Medical History
-
Chief Complaint: Liver resection
History of Present Illness:
Carlos A Ahn is a 73-year-old male with a past medical history notable for stage IIIb prostate cancer (on Lupron), rectal cancer status post FOLFOX X and XRT, dilated cardiomyopathy, paroxysmal atrial fibrillation (on apixaban), dyslipidemia, and
former smoker who presented for liver resection. There were no intraoperative complications. Cardiology was consulted to assist with cardiac care in the postoperative setting. Patient seen in PACU. He is having no chest pain. He is in sinus
rhythm on telemetry. He is awake but groggy. He was able to participate in this consultation. He is not having any chest pain or shortness of breath.
Past Medical History
Past Medical History: Arrhythmias (Paroxysmal atrial fibrillation), Cancer (Prostate, rectal, liver metastasis), CHF (Dilated cardiomyopathy) and Hypercholesterolemia
Social History
Tobacco: Former Smoker
Alcohol: None
Drug: None
Family History
Family History: Reviewed & Not Pertinent
Allergies / Home Medications
Allergy/AdvReac Type Severity Reaction Status Date / Time
aspirin Allergy baby Verified 06/25/24 09:00
aspirin -
'just
doesn't
feel good'
oxaliplatin Allergy Unknown Verified 06/25/24 09:00
�Medication �Instructions �Recorded �Confirmed �Type
leuprolide acetate (6 month) 45 mg 3.75 mg IM [id number] 04/08/22 05/23/24 History
intramuscular syringe kit (Lupron
Depot)
apixaban 2.5 mg tablet (Eliquis) 5 mg PO BID 06/25/24 06/25/24 History
lidocaine-prilocaine 2.5 %-2.5 % 1 applic topical PRN PRN numbing 06/25/24 06/25/24 History
topical cream
lisinopril 5 mg tablet 5 mg PO DAILY 06/25/24 06/25/24 History
metoprolol succinate 25 mg capsule 25 mg PO BID 06/25/24 06/25/24 History
sprinkle, ext. release 24 hr
rosuvastatin 10 mg tablet 10 mg PO DAILY 06/25/24 06/25/24 History
Review of Systems
-
History Source: Patient
All other systems: Negative unless noted
Constitutional: Fatigue
EENT: No Symptoms
Respiratory: No Symptoms
Cardiac: No Symptoms
Abdomen/GI: No Symptoms
: No Symptoms
Musculoskeletal: No Symptoms
Skin: No Symptoms
Neurological: No Symptoms
Endocrine: No Symptoms
Hematologic/Lymphatic: No Symptoms
Physical Exam
Vital Signs
Temp Pulse Resp BP Pulse Ox
96.9 F L 66 16 164/91 100
06/25/24 09:23 06/25/24 09:23 06/25/24 09:23 06/25/24 09:23 06/25/24 09:23
Physical Exam
General: Well Developed, Well Nourished, No Apparent Distress and Comfortable
HEENT: Normocephalic, Anicteric and Moist Mucous Membranes
Respiratory: Clear and Non Labored Respirations
Cardiac: S1/S2 and Regular Rhythm
Breast: Deferred by me
GI: Non Distended and Normal Bowel Sounds
Rectal: Deferred by Provider
Genito-urinary: No Costovertebral Tender
Musculoskeletal: No Clubbing, No Cyanosis and No Edema
Skin: Warm and Dry
Neuro: AO x 3
Hematologic/Lymphatic: No Lymphadenopathy
Psych: Calm
Impression / Plan
-
Hepatic segment VII tumor status post resection 06/25/[address] Good
-Oncology plans to continue cycle 6 of FOLFIRI
Dilated cardiomyopathy, LVEF 20-25%
-Stable without volume overload
-GDMT as tolerated
-Beta-luz: Metoprolol succinate 25 mg BID
-NENITA I/ARB: Lisinopril 5 mg daily, Entresto was cost prohibitive
-SGLT2: Can consider, case management to [facility]
-MRA: Can consider
-ICD: TTE 3 months after maximally tolerated GDMT
-Trend daily weight, I/O during admission
Paroxysmal atrial fibrillation
-Stable in sinus rhythm, continue metoprolol succinate 25 mg twice daily if BP allows
-Oral Anticoagulation: Apixaban 5 mg twice daily on hold, resume per surgery recommendation
-[id number]: Score at least 2 (Heart failure, age 65-74)
Rectal cancer, stage IIIb with liver metastasis, sees Dr. Baker in the outpatient setting
Prostate cancer, status post bicalutamide, completed Lupron
Dyslipidemia, on rosuvastatin 10, resume when able
Former smoker, continue cessation recommended
DATA:
Transthoracic echocardiogram, 04/30/2024:
Severely reduced left ventricular systolic function.
Left ventricular ejection fraction is 20-25%.
Mild mitral regurgitation.
Right heart pressures could not be determined.
Compared to the previous report 01/26/2024 there is been a reduction in left
ventricular function. Previously estimated 35%.
[2024-06-25 14:38] LABS: Hematocrit 31.4 % (39.0-52.0); Hemoglobin 10.8 g/dL (13.0-18.0); Mean Corp Hgb Conc. 34.4 g/dL (33.0-37.0); Mean Corpuscular Hgb 31.6 pg (27.0-31.0); Mean Corpuscular Volume 91.8 fL (80.0-94.0); Mean Platelet Volume 10.2 fL (7.4-10.4); Platelet Count 147 10^3/uL (130-400); Red Blood Cell Count 3.42 10^6/uL (4.70-6.10); Red Cell Dist. Width 12.1 % (11.5-14.5); White Blood Cell Count 9.9 10^3/uL (4.8-10.8)
[2024-06-25] MEDS: DILAUDID 0.25 MG IV (14:40)
[2024-06-25 14:55] LABS: PT 14.1 Sec (11.4-14.6)
[2024-06-25 14:56] LABS: APTT 27.1 Sec (23.4-35.0)
[2024-06-25 15:04] LABS: ALT (SGPT) 359 U/L (0-50); AST (SGOT) 370 U/L (17-59); Albumin 3.3 g/dl (3.5-5.0); Alkaline Phosphatase 73 U/L (38-126); Blood Urea Nitrogen 17 mg/dl (9-20); Calcium 8.3 mg/dl (8.4-10.2); Carbon Dioxide 27 mmol/L (22-30); Chloride 107 mmol/L (98-107); Estimated Creatinine Clearance 102 ml/min; Glucose 167 mg/dl (70-99); Potassium 4.4 mmol/L (3.5-5.1); Sodium 139 mmol/L (135-145); Total Bilirubin 0.6 mg/dl (0.2-1.3); Total Protein 5.6 g/dl (6.3-8.2); eGFR > 60.00
--- NOTE | 2024-06-25 15:32 | TRANSFER ---
Transferred to ICU, VSS. Patient alert and comfortable. Dressing dry. A-line with good waveform. Lyn Sanchez RN BSN.
--- NOTE | 2024-06-25 16:28 | PTCARENOTE ---
Pt admitted to ICU bed 3372 from PACU. Sinus Rhythm. A-line intact. BP stable. SpO2 93% on room air. Reports a little pain to abdomen. Denies need for pain meds at this time. Eating clear liquid tray. Holland draining clear yellow.
[2024-06-25] MEDS: MOTRIN 400 MG PO (17:32)
[2024-06-25] MEDS: ZOFRAN 4 MG IV (17:58)
[2024-06-25] MEDS: DILAUDID 0.5 MG IV ×2 (18:35→23:10)
--- NOTE | 2024-06-25 18:45 | PTCARENOTE ---
Pt had only a few sips of broth then reported nausea. Zofran given. Pt reported it effective for relief. Dilaudid given for reported increased RUQ pain.
[2024-06-25] MEDS: TOPROL XL 25 MG PO (20:02)
--- NOTE | 2024-06-25 20:30 | PTCARENOTE ---
rec'd patient. assessment as documented. oriented x3, denies need for pain meds, admits to intermittent nausea. SR with PVCs on monitor. arterial line leveled and zeroed. on RA, denies SOB. poor appetite at this time. aquacell to incision site with
scant drainage. huerta intact. pt repositioning self, call bel within reach. care ongoing.
[2024-06-26] VITALS (7 sets, daily range): BP systolic 134–157; BP diastolic 77–86; PULSE 69–73; O2SAT 95–97; BMI 25.2
[2024-06-26] MEDS: DILAUDID 0.5 MG IV ×3 (03:59→13:37)
--- NOTE | 2024-06-26 04:23 | PTCARENOTE ---
AM labs sent. huerta care done. PRN pain meds given overnight, see MAR. pt repositioned for comfort. call burger within reach, care ongoing.
[2024-06-26 04:34] LABS: % Basophils 0.1 % (0-2); % Immature Granulocytes 0.4 % (0-0.5); % Lymphocytes 7.1 % (20.5-51.1); % Monocytes 8.8 % (1.7-9.3); % Neutrophils 83.6 % (42.2-75.2); Absolute Lymphocytes 0.6 10^3/uL (1.2-3.4); Absolute Monocytes 0.8 10^3/uL (0.1-0.6); Absolute Neutrophils 7.6 10^3/uL (1.4-6.5); Hematocrit 32.6 % (39.0-52.0); Hemoglobin 11.2 g/dL (13.0-18.0); Mean Corp Hgb Conc. 34.4 g/dL (33.0-37.0); Mean Corpuscular Hgb 32.1 pg (27.0-31.0); Mean Corpuscular Volume 93.4 fL (80.0-94.0); Mean Platelet Volume 10.4 fL (7.4-10.4); Nucleated Red Blood Cells % 0 % (-); Platelet Count 148 10^3/uL (130-400); Red Blood Cell Count 3.49 10^6/uL (4.70-6.10); Red Cell Dist. Width 11.9 % (11.5-14.5); White Blood Cell Count 9.1 10^3/uL (4.8-10.8)
[2024-06-26 04:54] LABS: ALT (SGPT) 420 U/L (0-50); AST (SGOT) 358 U/L (17-59); Albumin 3.8 g/dl (3.5-5.0); Alkaline Phosphatase 62 U/L (38-126); Blood Urea Nitrogen 21 mg/dl (9-20); Calcium 8.9 mg/dl (8.4-10.2); Carbon Dioxide 25 mmol/L (22-30); Chloride 103 mmol/L (98-107); Estimated Creatinine Clearance 102 ml/min; Glucose 159 mg/dl (70-99); Potassium 4.4 mmol/L (3.5-5.1); Sodium 140 mmol/L (135-145); Total Bilirubin 0.8 mg/dl (0.2-1.3); Total Protein 6.1 g/dl (6.3-8.2); eGFR > 60.00
[2024-06-26 07:37] LABS: Glycohemoglobin (HgbA1c) 5.3 % (4.0-5.6)
[2024-06-26] MEDS: ZESTRIL 5 MG PO (07:48)
[2024-06-26] MEDS: CRESTOR 10 MG PO (07:48)
[2024-06-26] MEDS: TOPROL XL 25 MG PO ×2 (07:49→19:25)
--- NOTE | 2024-06-26 08:00 | PTCARENOTE ---
Received pt via handoff. AOx3, MANTILLA, follows commands. NSR with PVC's, SBP 150's-160's. Pt on RA, slightly diminished. Hypoactive bowel sounds with absence of flatus. Zofran given for nausea. Holland CDI draining trent urine. Aquacell on the right
abdomen at surgical site with slight drainage. A Line through the left radial zeroed and correlate with cuff, 18G Left AC and right chest wall port. Family at bedside, will continue to monitor.
--- NOTE | 2024-06-26 08:13 | W.PN.INTV ---
Addendum entered and electronically signed by Otilio Deleon MD 06/26/24 13:58:
Total time spent today was 55 minutes for this encounter. Time includes reviewing laboratory test/imaging results, reviewing pertinent medical records, obtaining and reviewing medical history, performing an appropriate exam, ordering medications,
tests and procedures. Time also includes documentation of this encounter, coordinating patient care and communicating with other healthcare professionals. Total time does not include separately billed tests performed on this date of service.
Original Note:
Today's Communication / Plan
Recommendations
Pain control
prn Maalox vs simethicone
Currently on clear liquid diet � ADAT
Maintain SpO2 >90-94%
Encourage incentive spirometer use
Continue with ICU level care as per surgical oncology. Once transferred out of ICU to telemetry then we will sign off at that time. Please call back with any questions or concerns.
Assessment
-
Assessment: 73-year-old male with a past medical history of synchronous rectal cancer + prostate cancer (Dx in 2021) s/p total neoadjuvant therapy + chemotherapy/XRT currently on Lupron hypercholesterolemia, dilated cardiomyopathy, and paroxysmal
A-fib on Eliquis who presents for liver resection. Whole-body PET/CT from 12/20/2023 showed a 3.4cm FDG avid lesion in the right hepatic lobe consistent with metastatic disease. On 01/05/[address]-guided liver biopsy which was
consistent with metastatic colorectal adenocarcinoma. Subsequent abdominal MRI on 01/10/2024 showed a solitary posterior right hepatic lobe metastatic lesion measuring up to 3.4 cm with no additional suspicious hepatic lesions. Follow-up MRI of the
abdomen on 04/18/2024 showed interval decrease in size of right hepatic lesion now measuring 1.7 cm. He is chemotherapy is currently on hold for liver resection. He has met with surgical oncologist Dr. Good on 05/24/2024 and reviewed the risks and
benefits of hepatic resection. Today he underwent liver resection with no immediate complications and was transferred to the ICU postoperatively. Waterworks Supervisor services now consulted for additional management/recommendations.
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
on Eliquis
Impression:
#Metastatic colorectal adenocarcinoma with liver metastasis s/p segment VII hepatic resection (POD #1)
#Synchronous rectal cancer + prostate cancer (diagnosed in 2021) s/p JAKE + chemotherapy/XRT currently on Lupron
#Paroxysmal A-fib (s/p bowel prep for colonoscopy) on Eliquis
#Former tobacco smoker (32-yetc-vikp history, quit March 2014)
#Chronic HFrEF (LVEF: 20-25% via TTE from 04/30/2024)
Plan:
- Postoperative management as per surgical oncology
- Pain control
- Operative report from surgical oncology reviewed
- Aspiration precautions
- Follow up pathology from OR case
- Limit IVF given his chronic systolic CHF
- Ok to remove A-line
- Geet up OOBb as tolerated
- Simethicone/maalox for his indigestion and increased 'gas bubbles' complaint this AM
- Maintain SpO2 >90-94%
- Maintain MAP>65
- Replete electrolytes with K>4, Mg>2
- Maintain euglycemia with goal BG 140-180
- PT/OT
- prn nebulized bronchodilators - not currently bronchospastic
- Incentive spirometer encouraged 10x per hr for at least 4 hrs a day
- DVT ppx: SCDs for now; defer starting chemical DVT ppx today assuming ok to do so with surgery; he is Rx Eliquis at home
Of note, given his tobacco smoking history he may qualify for annual LDCT chest for lung cancer screening purposes. However given his active colorectal adenocarcinoma with mets to the liver, unclear if he qualifies for screening. Would defer to
his oncologist (Dr. Baker) in regards to future imaging studies of his chest that are obtained.
Continue with ICU level care as per surgical oncology. Once transferred out of ICU to telemetry then we will sign off at that time. Please call back with any questions or concerns.
Data:
Abdominal MRI 04/18/2024:
Interval decrease in size of right hepatic lesion, which was previously biopsied, with pathology indicating metastatic colorectal adenocarcinoma.
Multiple stable hepatic cysts.
The pancreatic duct is slightly dilated within the head and neck of the pancreas, stable. Not mentioned above, there is a 5 mm cystic lesion within the body of the pancreas, which is stable. In a 73-year-old, consider follow-up MRI of the
abdomen/MRCP in 2 years with attention to the pancreas
Subjective Dataa
Subjective Data
Date of Service:
Date of Service: June 26, 2024
Chief Complaint: Waterworks Supervisor Follow Up
Subjective:
Patient seen and evaluated this morning. Patient's , Mariella, at bedside. All questions were answered. Patient is resting in bed in no acute distress. He endorses abdominal discomfort with increased gas. Has reduced appetite with
intermittent nausea. Heart rate 75, saturating 96% on room air and BP 151/71.
Review of Systems
General: Other (Negative unless mentioned above)
Objective Data
Data Reviewed
Vital Signs / I&O / Oxygen:
Vital Signs
Temp Pulse Resp BP Pulse Ox
98.0 F 82 23 153/73 96
06/26/24 07:21 06/26/24 08:00 06/26/24 08:00 06/26/24 07:49 06/26/24 08:00
Intake and Output
06/25/24 06/26/24 06/27/24
06:59 06:59 06:59
Intake Total 1275 / 1275
Output Total 1190 / 1190
Balance 85 / 85
SaO2 96
Nasal Cannula flow liters per 0
minute
Physical Exam
General: Respiratory Distress (negative), Pain (abdominal discomfort/gaseous), Chills (negative), Sweats (negative) and Poor Appetite
HEENT: Normocephalic and Anicteric
Cardiovascular: S1-S2 and Peripheral Edema (negative)
Respiratory: Wheeze (negative), Crackles (negative), Rhonchi (negative) and Non-Labored Respirations
GI: Soft, Non Distended, Non Tender and Normal Bowel Sounds
Neurology: AO x 3 and Tremors (negative)
Skin: Warm, Dry and Jaundice (negative)
Labs/Micro/Reports
Lab Data
06/26/24 04:07
06/26/24 04:07
Laboratory Results
06/25/24
14:28
PT 14.1
INR 1.10
APTT 27.1
[2024-06-26] MEDS: ZOFRAN 4 MG IV (10:01)
--- NOTE | 2024-06-26 10:36 | W.PN.CD ---
Today's Communication / Plan
-
Add incentive spirometry
I think volume status is OK for early post op
Will consider IV Lasix if dyspnea worsens
Slowly add back meds for his cardiomyopathy
Impression / Plan
-
Hepatic segment VII tumor status post resection 06/25/[address] Good
-Oncology plans to continue cycle 6 of FOLFIRI
Dilated cardiomyopathy, LVEF 20-25%
-Stable without volume overload
-GDMT as tolerated
-Beta-luz: Metoprolol succinate 25 mg BID
-NENITA I/ARB: Lisinopril 5 mg daily, Entresto was cost prohibitive
-SGLT2: Can consider, case management to [facility]
-MRA: Can consider
-ICD: TTE 3 months after maximally tolerated GDMT => met cancer may temper enthusiasm for ICD
-Trend daily weight, I/O during admission
Paroxysmal atrial fibrillation
-Stable in sinus rhythm, continue metoprolol succinate 25 mg twice daily if BP allows
-Oral Anticoagulation: Apixaban 5 mg twice daily on hold, resume per surgery recommendation
-[id number]: Score at least 2 (Heart failure, age 65-74)
Rectal cancer, stage IIIb with liver metastasis, sees Dr. Baker in the outpatient setting
Prostate cancer, status post bicalutamide, completed Lupron
Dyslipidemia, on rosuvastatin 10, resume when able
Former smoker, continue cessation recommended
Subjective:
No CP. Minimal dyspnea
DATA:
Transthoracic echocardiogram, 04/30/2024:
Severely reduced left ventricular systolic function.
Left ventricular ejection fraction is 20-25%.
Mild mitral regurgitation.
Right heart pressures could not be determined.
Compared to the previous report 01/26/2024 there is been a reduction in left
ventricular function. Previously estimated 35%.
Physical Exam
Vital Signs/Labs
Vital Signs
Temp Pulse Resp BP Pulse Ox
98.0 F 65 13 153/73 94
06/26/24 07:21 06/26/24 09:00 06/26/24 09:00 06/26/24 07:49 06/26/24 09:00
06/25/24 06/26/24 06/27/24
06:59 06:59 06:59
Actual Weight 80.9 kg
06/26/24 04:07
06/26/24 04:07
PT 14.1 Sec (11.4-14.6) 06/25/24 14:28
INR 1.10 06/25/24 14:28
APTT 27.1 Sec (23.4-35.0) 06/25/24 14:28
Physical Exam
Constitutional: No acute distress
EENT: Anicteric
Cardiovascular: Rhythm & rate is regular and Pedal edema is absent
Respiratory: Respiratory effort normal, Lungs clear to auscul. and Crackles Absent
GI: Soft and Distention absent
Neuro/Psych: AO x 3
Data Reviewed
-
Date of Service: June 26, 2024
--- NOTE | 2024-06-26 12:00 | PTCARENOTE ---
All systems reassessed. Pt c/o nausea when taking in sips of water, Zofran given, will assess again. PT/OT helped pt ambulate in room and to the chair. A Line and Holland removed per orders. Pt to be transferred to [facility] floor awaiting room. Will
continue to monitor.
--- NOTE | 2024-06-26 13:10 | W.PN.GENERIC ---
Assessment / Plan
-
S/p Liver Resection POD #1
Stable. There is no evidence of bleeding
OOB and ambulate
Tsf pt to the surgical floor
Advance diet
Physician Progress Note
Subjective
Feeling nauseous with min abdominal pain.
Objective
Vital Signs
Temp Pulse Resp BP Pulse Ox
98.0 F 76 21 140/78 97
06/26/24 07:21 06/26/24 12:00 06/26/24 12:00 06/26/24 10:40 06/26/24 12:00
Lab Results
06/26/24 04:07
06/26/24 04:07
Abdomen - soft ND. Dsg - intact
--- NOTE | 2024-06-26 13:30 | W.PN.HOSP.TC ---
Addendum entered and electronically signed by Héctor Greenwood MD 06/26/24 16:10:
#Elevated liver function test/transaminitis
Possibly due to liver resection versus metastatic disease
Continue to trend
Original Note:
Today's Communication/Plan
-
see bold
Assessment / Plan
Assessment / Plan
HPI: 73-year-old male with a past medical history of prostate cancer, rectal cancer with metastases to the liver, paroxysmal atrial fibrillation on Eliquis, dilated cardiomyopathy, and hypertension was placed in postsurgical observation after having
segment [address] Good on 06/25/24. Patient seen and examined in the PACU. Currently, he does report incisional abdominal pain. He reports having night sweats and intermittent fevers at home, was told that this is from his chemo.
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
#Rectal cancer confirmed via biopsy on 01/05/2024
Appreciate fire prevention engineer and Dr. Good
Pain meds, laxatives, PT
Stable for transfer to the floors under Dr. Good, who will now assume primary attending
Medicine will no longer follow, please call with any questions or concerns
#Hx prostate and rectal cancer Dx 2021
#Prostate and rectal cancer Dx 2021 with rectal cancer mets to liver confirmed via biopsy on 01/05/2024
#Prostate cancer status post radiation and chemo 2022
#Rectal cancer status post radiation and chemo 2022
#Liver mets Dx December status post chemo 8 sessions April 2024
-Patient on Lupron every 6 months last FINAL dose he states was on 11/02/2023-he reports he was only to be on for 2 years
#Paroxysmal A-fib
-Cardiology following
-Resume Eliquis when okay with Dr. Good
-Continue metoprolol 25 mg twice daily with hold parameters
#Belching
Maalox as needed
#Hx dilated cardiomyopathy
I/O, daily weights
2D echo 04/03/2024: Severely reduced LV SF, EF 20-25%, mild MR
#HTN
BP 144/65
-Continue lisinopril 5 mg daily, metoprolol succinate twice daily with hold parameters
-Pending bmp
#HLD
Patient stopped Crestor 10 mg daily 2 weeks ago
#Former smoker
30 years 1 pack a day quit 10 years ago
DVT prophylaxis�SCDs, resume Eliquis when okay with Dr. Good
Total time spent to see the patient on the floor, examine the patient, review data and lab results, discuss treatment plan with patient, nursing staff around 40 minutes.
Physical Exam
General: No acute distress
HEENT: Normocephalic, Atraumatic, EOMI, MMM
Respiratory: Clear to Auscultation bilaterally
Cardiac: Normal S1/S2, Regular Rate and Rhythm
GI: Soft, appropriately tender, incision dressed
Extremities: No Clubbing, Cyanosis, or Edema
Neuro: Nonfocal/Grossly Intact
Anticipated Discharge: 24 - 48 hours
Subjective/Interval History
-
Date of Service: June 26, 2024
Patient reports his abdominal pain is tolerable. No fever, no vomiting.
Objective Data
-
Labs:
Laboratory Results
06/26/24
04:07
WBC 9.1
Hgb 11.2 L
Hct 32.6 L
Plt Count 148
Sodium 140
Potassium 4.4
Chloride 103
Carbon Dioxide 25
BUN 21 H
Creatinine 0.7
Glucose 159 H
Calcium 8.9
Total Bilirubin 0.8
AST 358 H
ALT 420 H
Alkaline Phosphatase 62
Vital Signs:
Vital Signs
Temp Pulse Resp BP Pulse Ox
98.0 F 76 21 140/78 97
06/26/24 07:21 06/26/24 12:00 06/26/24 12:00 06/26/24 10:40 06/26/24 12:00
I&O
06/25/24 06/26/24 06/27/24
06:59 06:59 06:59
Intake Total 1275 / 1275
Output Total 1190 / 1190 250 / 250
Balance 85 / 85 -250 / -250
--- NOTE | 2024-06-26 13:41 | CM ---
Reviewed the chart notes and spoke with the patient at the bedside. The patient resides with his spouse in a two story home with three steps to enter via the garage. The patient reports no DME/VN/SNF in the past. The patient confirmed his
pharmacy of choice is the [facility]. CM continues to be available to patient/family and is monitoring medical plan for needs at discharge.
Plan: Discharge to home when medically stable. Anticipating no needs at this time.
[2024-06-26] MEDS: MAALOX PLUS 1 TABLET PO (14:26)
[2024-06-26] MEDS: SENOKOT-S 2 TABLET PO (16:31)
[2024-06-26] MEDS: SENOKOT-S PO (19:25)
--- NOTE | 2024-06-26 20:22 | PTCARENOTE ---
rec'd patient. assessment as documented. OOB to BR with supervision. SR on monitor, frequent PVCs. SCDs on. on RA, denies SOB. denies pain at this time. poor appetite throughout day. midline aquacell dressing with scant drainage. call burger within
reach, care ongoing.
[2024-06-27] VITALS (36 sets, daily range): BP systolic 120–164; BP diastolic 80–132; BMI 25.3
[2024-06-27] MEDS: DILAUDID 0.5 MG IV (02:34)
--- NOTE | 2024-06-27 04:30 | PTCARENOTE ---
AM labs sent. heparin lock flush thru port.
[2024-06-27 04:44] LABS: Hematocrit 35.4 % (39.0-52.0); Mean Corp Hgb Conc. 33.9 g/dL (33.0-37.0); Mean Corpuscular Hgb 32.1 pg (27.0-31.0); Mean Corpuscular Volume 94.7 fL (80.0-94.0); Mean Platelet Volume 10.1 fL (7.4-10.4); Platelet Count 150 10^3/uL (130-400); Red Blood Cell Count 3.74 10^6/uL (4.70-6.10); Red Cell Dist. Width 12.1 % (11.5-14.5); White Blood Cell Count 9.5 10^3/uL (4.8-10.8)
[2024-06-27 05:02] LABS: INR 1.04; PT 13.6 Sec (11.4-14.6)
[2024-06-27 05:03] LABS: APTT 24.6 Sec (23.4-35.0)
[2024-06-27 05:07] LABS: ALT (SGPT) 412 U/L (0-50); AST (SGOT) 215 U/L (17-59); Albumin 4.1 g/dl (3.5-5.0); Alkaline Phosphatase 68 U/L (38-126); Blood Urea Nitrogen 20 mg/dl (9-20); Calcium 9.5 mg/dl (8.4-10.2); Carbon Dioxide 29 mmol/L (22-30); Chloride 100 mmol/L (98-107); Estimated Creatinine Clearance 102 ml/min; Glucose 132 mg/dl (70-99); Potassium 4.4 mmol/L (3.5-5.1); Sodium 140 mmol/L (135-145); Total Bilirubin 0.7 mg/dl (0.2-1.3); Total Protein 6.7 g/dl (6.3-8.2); eGFR > 60.00
--- NOTE | 2024-06-27 07:16 | PTCARENOTE ---
Pt awake and alert. Assisted to BR to urinate. While in the BR he spontaneously vomited moderate amount of clear emesis with orange flecks. He stated it looked like the water and sweet potato he had last night. +BSX4. Hypoactive in the right lower
quadrant. He was able to rinse his mouth out with mouth wash. Tender over abdominal incision. Aquacel dressing intact, old shadowing noted on dressing. Lungs with bibasilar crackles, reported clear frothy phlegm that started last night. Denies SOB.
Denies any fluid restriction or salt restrictions at home. RA pulse ox 95-96%. Weak pedal pulses. Left AC# 18g protective catheter flushed and patent. Right anterior chest wall SQ port capped. Reviewed the plan of care regarding pain management, and
managing his nausea around his meals. He is passing flatus, no BM since 06/25/24. Safe environment maintained. Will continue to monitor.
[2024-06-27] MEDS: ZESTRIL 5 MG PO (07:34)
[2024-06-27] MEDS: SENOKOT-S 2 TABLET PO ×2 (07:35→19:31)
[2024-06-27] MEDS: CRESTOR 10 MG PO (07:35)
[2024-06-27] MEDS: TOPROL XL 25 MG PO ×2 (07:35→09:20)
--- NOTE | 2024-06-27 08:36 | W.PN.CD ---
Today's Communication / Plan
-
increase Toprol XL
case mgmt c/s for SGLT2i pricing
resume eliquis when safe post op
Impression / Plan
-
Hepatic segment VII tumor status post resection 06/25/[address] Good
-Oncology plans to continue cycle 6 of FOLFIRI
-stable post op
Dilated cardiomyopathy, LVEF 20-25%
-Stable without volume overload
-GDMT as tolerated
-Beta-luz: increase Metoprolol succinate to 50 mg BID
-NENITA I/ARB: Lisinopril 5 mg daily, Entresto was cost prohibitive
-SGLT2: case management to [facility] (although he did not have coverage for entresto)
-MRA: will add this admission if unable to start SGLT2i
-ICD: TTE 3 months after maximally tolerated GDMT => met cancer may temper enthusiasm for ICD
-Trend daily weight, I/O during admission
Paroxysmal atrial fibrillation
-Stable in sinus rhythm, continue metoprolol succinate
-Oral Anticoagulation: Apixaban 5 mg twice daily on hold, resume when safe post op
-[id number]: Score at least 2 (Heart failure, age 65-74)
Rectal cancer, stage IIIb with liver metastasis, sees Dr. Baker in the outpatient setting
Prostate cancer, status post bicalutamide, completed Lupron
Dyslipidemia, on rosuvastatin 10, resume when able
Former smoker, continue cessation recommended
Subjective:
No CP. Minimal dyspnea
DATA:
Transthoracic echocardiogram, 04/30/2024:
Severely reduced left ventricular systolic function.
Left ventricular ejection fraction is 20-25%.
Mild mitral regurgitation.
Right heart pressures could not be determined.
Compared to the previous report 01/26/2024 there is been a reduction in left
ventricular function. Previously estimated 35%.
Physical Exam
Vital Signs/Labs
Vital Signs
Temp Pulse Resp BP Pulse Ox
99 F 97 15 163/106 95
06/27/24 03:48 06/27/24 07:35 06/27/24 06:00 06/27/24 07:35 06/27/24 06:00
06/26/24 06/27/24 06/28/24
06:59 06:59 06:59
Actual Weight 80.9 kg 81 kg
06/27/24 04:27
06/27/24 04:27
PT 13.6 Sec (11.4-14.6) 06/27/24 04:27
INR 1.04 06/27/24 04:27
APTT 24.6 Sec (23.4-35.0) 06/27/24 04:27
Physical Exam
Constitutional: No acute distress and Comfortable
EENT: Moist mucous membranes
Cardiovascular: Rhythm & rate is regular, Pedal edema is absent, JVD pressure is normal and Systolic murmur absent
Respiratory: Respiratory effort normal and Lungs clear to auscul.
GI: Soft and Distention absent
Neuro/Psych: AO x 3
Data Reviewed
-
Date of Service: June 27, 2024
Echo: Report Reviewed by me
Labs: Labs Reviewed by me
--- NOTE | 2024-06-27 09:06 | PTCARENOTE ---
Clarified Metoprolol dose with Dr. Cevallos with current HR 84, BP 131/95. Will administer as ordered. Pt is sosa the dose was increased.
[2024-06-27] MEDS: ZOFRAN 4 MG IV (09:20)
--- NOTE | 2024-06-27 09:51 | PTCARENOTE ---
Dr. Cevallos aware of weight gain and bibasilar crackles, with white frothy phlegm production since last night. No orders at this time. Will continue to monitor.
--- NOTE | 2024-06-27 11:29 | PTCARENOTE ---
He called RN into room. was holding basin to him, he had just vomited. He is reporting diaphoresis as he is wiping his brow and neck. 'I feel sweaty'. Cycled BP while I was obtaining an accu check. Glucose 146, HR then suddenly went to 208,
cough unsuccessful to break rhythm. BP elevated. Dr. Cevallos notified via TT. He is alerting the in house physician. Shortly after Dr. Clement arrived into the room. 5mg IVP Lopressor administered via right SQ port, then Amiodarone bolus 150mg IV, Pt
hr persistently JOHANNY 130's-160's. Digoxin administered as ordered.
--- NOTE | 2024-06-27 11:30 | W.PN.INTV ---
Today's Communication / Plan
Recommendations
Heart rate control while on amiodarone gtt with dig load
prn lopressor
If need better HR control then will need to start esmolol vs cardioversion if he becomes unstable
Pain control
NPO; if he vomits then insert NGT and place onto LIWS
Maintain SpO2 >90-94%
Continue with ICU level care
Assessment
-
Assessment: 73-year-old male with a past medical history of synchronous rectal cancer + prostate cancer (Dx in 2021) s/p total neoadjuvant therapy + chemotherapy/XRT currently on Lupron hypercholesterolemia, dilated cardiomyopathy, and paroxysmal
A-fib on Eliquis who presents for liver resection. Whole-body PET/CT from 12/20/2023 showed a 3.4cm FDG avid lesion in the right hepatic lobe consistent with metastatic disease. On 01/05/[address]-guided liver biopsy which was
consistent with metastatic colorectal adenocarcinoma. Subsequent abdominal MRI on 01/10/2024 showed a solitary posterior right hepatic lobe metastatic lesion measuring up to 3.4 cm with no additional suspicious hepatic lesions. Follow-up MRI of the
abdomen on 04/18/2024 showed interval decrease in size of right hepatic lesion now measuring 1.7 cm. He is chemotherapy is currently on hold for liver resection. He has met with surgical oncologist Dr. Good on 05/24/2024 and reviewed the risks and
benefits of hepatic resection. Today he underwent liver resection with no immediate complications and was transferred to the ICU postoperatively. Assorter services now consulted for additional management/recommendations.
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
on Eliquis
Impression:
#Metastatic colorectal adenocarcinoma with liver metastasis s/p segment VII hepatic resection (POD #1)
#Synchronous rectal cancer + prostate cancer (diagnosed in 2021) s/p JAKE + chemotherapy/XRT currently on Lupron
#Rapid A-fib
#Abdominal pain with post-operative ileus
#Hx of paroxysmal A-fib (s/p bowel prep for colonoscopy) on Eliquis
#Former tobacco smoker ([id number] history, quit March 2014)
#Chronic HFrEF (LVEF: 20-25% via TTE from 04/30/2024)
Plan:
- Postoperative management as per surgical oncology
- Pain control
- Operative report from surgical oncology reviewed
- Aspiration precautions
- Follow up pathology from OR case
- Limit IVF given his chronic systolic CHF
- Cardiology consulted given rapid A-fib this morning, and he is now on amiodarone and undergoing digoxin load and given prn IV lopressor
- Check BMP, Mg and PO4 and keep K>4, Mg>2 and PO4>3
- Goal HR<110
- Keep MAP>65
- Unable to use cardizem gtt given chronic systolic heart failure; if need rate control then will start esmolol gtt
- Maintain SpO2 >90-94%
- Maintain MAP>65
- Bedrest until HR is controlled for >6-12 hours
- NPO for his ileus, and continue with anti-emetics as needed; if he vomits again then insert NGT (this was reviewed with Dr. Good)
- Maintain euglycemia with goal BG 140-180
- PT/OT - not until his HR is stable
- prn nebulized bronchodilators - not currently bronchospastic
- Incentive spirometer encouraged 10x per hr for at least 4 hrs a day
- DVT ppx: Eliquis
Of note, given his tobacco smoking history he may qualify for annual LDCT chest for lung cancer screening purposes. However given his active colorectal adenocarcinoma with mets to the liver, unclear if he qualifies for screening. Would defer to
his oncologist (Dr. Baker) in regards to future imaging studies of his chest that are obtained.
Patient transferred back to the ICU this morning due to A-fib with RVR. Assorter services will continue to follow along while he remains in the ICU.
Critical care statement: A total of 41 minutes of critical care time was provided for this patient today. This includes management of unstable vital signs, evaluation of the patient at bedside, reviewing the patient's pertinent medical records
including radiographs, microbiology, laboratory evaluations, and discussion with primary team, consultants, pharmacy, nutrition, physical therapy, case management, charge nurse, critical care nursing, and respiratory therapy.
Data:
AXR 06/27/2024:
There is gas in nondilated loops of colon as well as gas in dilated loops of small bowel measuring up to 4.9 cm
The bowel gas pattern is most suggestive of small bowel obstruction.
Given the lack of colonic dilatation, Ileus is less likely but included in the differential diagnosis
Abdominal MRI 04/18/2024:
Interval decrease in size of right hepatic lesion, which was previously biopsied, with pathology indicating metastatic colorectal adenocarcinoma.
Multiple stable hepatic cysts.
The pancreatic duct is slightly dilated within the head and neck of the pancreas, stable. Not mentioned above, there is a 5 mm cystic lesion within the body of the pancreas, which is stable. In a 73-year-old, consider follow-up MRI of the
abdomen/MRCP in 2 years with attention to the pancreas
Subjective Dataa
Subjective Data
Date of Service:
Date of Service: June 27, 2024
Chief Complaint: Assorter Follow Up
Subjective:
Called back to see the patient later this morning due to rapid A-fib with heart rate in the 190s. He was upgraded back to the ICU. Patient treated with IV metoprolol, started on amiodarone drip and also dig loaded.
Patient feels 'defeated,' as he feels like he is going backwards and was looking forward to leaving the hospital and getting better. He denies chest pain, SOB, [place], fevers or chills, although he still has abdominal discomfort with occasional nausea.
He also vomited earlier today x 2 with water that he just drank, and vomitus was nonbloody. When I saw the patient, heart rate 148, saturating 98% on 3 L/min nasal cannula with BP 135/95.
Review of Systems
General: Other (Negative unless mentioned above)
Objective Data
Data Reviewed
Vital Signs / I&O / Oxygen:
Vital Signs
Temp Pulse Resp BP Pulse Ox
98.4 F 91 30 163/101 97
06/27/24 15:33 06/27/24 17:00 06/27/24 17:00 06/27/24 17:00 06/27/24 16:00
Intake and Output
06/26/24 06/27/24 06/28/24
06:59 06:59 06:59
Intake Total 1275 / 1275 960 / 960 99.9 / 99.9
Output Total 1190 / 1190 250 / 250
Balance 85 / 85 710 / 710 99.9 / 99.9
SaO2 97
Nasal Cannula flow liters per 0
minute
Physical Exam
General: Respiratory Distress (negative), Pain (abdominal discomfort/gaseous), Chills (negative) and Sweats (negative)
HEENT: Normocephalic and Anicteric
Cardiovascular: Irregular Rhythm (Irregularly irregular), Peripheral Edema (negative) and Other (Tachycardic)
Respiratory: Clear, Wheeze (negative), Crackles (negative), Rhonchi (negative) and Non-Labored Respirations
GI: Soft, Non Distended, Non Tender and Normal Bowel Sounds
Neurology: AO x 3 and Tremors (negative)
Skin: Warm, Dry and Jaundice (negative)
Labs/Micro/Reports
Lab Data
06/27/24 04:27
06/27/24 14:32
Laboratory Results
06/27/24
04:27
PT 13.6
INR 1.04
APTT 24.6
--- NOTE | 2024-06-27 11:33 | PTCARENOTE ---
Called RN into room. was holding basin to his mouth. He vomited. Pt reported diaphoresis and not feeling well. Glucose 146, HR peaked 208, EKG obtained. Pt denies palpitations. BP 163/103. Dr. Cevallos TT's these events. EKG now JOHANNY. He is
notifying the inpatient team. RN remained with pt and his .
[2024-06-27 11:46] LABS: Glucose - Point of Care 146 mg/dl (70-99)
[2024-06-27] MEDS: LOPRESSOR 5 MG IV ×2 (11:50→15:03)
[2024-06-27] MEDS: CORDARONE 103 MG IV (11:53)
--- NOTE | 2024-06-27 12:07 | W.PN.UPDATE ---
Addendum entered and electronically signed by Calixto Dunne MD 06/27/24 15:07:
Agree with below; was at bedside with PREPARING BOX TENDER to evaluate and help manage patient.
-Nausea/vomiting is likely not secondary to primary cardiac issue (atrial fibrillation with RVR); recommend management by primary Surgical team.
-Will continue to monitor heart rates closely.
Original Note:
Update Note
Progress Note Update
Our service was alerted that patient was feeling unwell and was diaphoretic and monitor revealed AFIB with RVR in 190's. BP stable. He was given a total of 5 mg IV metoprolol, 150 mg IV amiodarone, 250 mcg digoxin IV, and will be placed on IV
amiodarone drip for now. Abnormal LFT's noted, so monitor and hopefully can come off amiodarone soon. HR currently improved to 120's. Building Construction Supervisor, hospitalist, and surgeon all updated. Patient is also feeling nauseated, which will be addressed by
medical/surgical team as noted. He will remain in ICU for close monitoring.
[2024-06-27] MEDS: LANOXIN 250 MCG IV ×2 (12:08→14:02)
[2024-06-27] MEDS: CORDARONE 518 MG IV (12:28)
--- NOTE | 2024-06-27 12:39 | PTCARENOTE ---
Dr. Good at the bedside. Verified with Dr. Clmeent for Dr. Good regarding need to trend troponin due to pt intermittently hiccoughing. Will not trend per Dr. Clement as this is not ACS. Dr. Good will restart Eliquis due to JOHANNY w/RVR. Amiodarone drip
now at 1mg/min via right anterior chest wall SQ port as ordered.
--- NOTE | 2024-06-27 12:42 | W.PN.GENERIC ---
Assessment / Plan
-
S/p partial liver resection POD#2
1. Afib
since there is no evidence of bleeding, we will restart Eliquis
as per cardiology service
2. N/V/hiccups
there was no manipulation of the bowel during his surgery, so surprising he has N/V
If vomiting continues, will place a NGT
check obstruction series
may need to start IVFs but hold off given his cardiac status
any benefit of checking cardiac enz?
3. Hg stable
4. continue ICU care
Physician Progress Note
Subjective
c/o nausea and vomiting. Also has flatus. Went into atrial fibrillation
Objective
Vital Signs
Temp Pulse Resp BP Pulse Ox
98.6 F 125 17 121/103 98
06/27/24 12:03 06/27/24 12:12 06/27/24 12:12 06/27/24 12:10 06/27/24 12:12
Lab Results
06/27/24 04:27
06/27/24 04:27
Abdomen - soft. Incision - CDI
--- NOTE | 2024-06-27 12:55 | CM ---
CM was consulted for medication flaherty check.
Farxiga is $134 vs. Jardiance $130. CM made cardiology aware.
--- NOTE | 2024-06-27 14:28 | W.PN.HOSP.TC ---
Today's Communication/Plan
-
F/u Abd XR
Amio drip per cards
Resuming eliquis tonight
Assessment / Plan
Assessment / Plan
HPI: 73-year-old male with a past medical history of prostate cancer, rectal cancer with metastases to the liver, paroxysmal atrial fibrillation on Eliquis, dilated cardiomyopathy, and hypertension was placed in postsurgical observation after having
segment [address] Good on 06/25/24. Patient seen and examined in the PACU. Currently, he does report incisional abdominal pain. He reports having night sweats and intermittent fevers at home, was told that this is from his chemo.
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
#Rectal cancer confirmed via biopsy on 01/05/2024
Appreciate e business manager and Dr. Good
Pain meds, laxatives, PT
Stay in ICU secondary to rapid atrial fibrillation
#Rapid atrial fibrillation
Cardiology following, on IV amiodarone, Toprol XL increased to 50 mg twice a day
Cleared to resume Eliquis tonight
#Nausea/vomiting/abdominal pain
Likely due to postop ileus
Follow-up abdominal x-ray, consider NG tube
Add IV PPI, antiemetics as needed
#Elevated liver function test/transaminitis
Possibly due to liver resection versus metastatic disease
Continue to trend
#Hx prostate and rectal cancer Dx 2021
#Prostate and rectal cancer Dx 2021 with rectal cancer mets to liver confirmed via biopsy on 01/05/2024
#Prostate cancer status post radiation and chemo 2022
#Rectal cancer status post radiation and chemo 2022
#Liver mets Dx December status post chemo 8 sessions April 2024
-Patient on Lupron every 6 months last FINAL dose he states was on 11/02/2023-he reports he was only to be on for 2 years
#Belching
Maalox as needed
#Hx dilated cardiomyopathy
I/O, daily weights
2D echo 04/03/2024: Severely reduced LV SF, EF 20-25%, mild MR
#HTN
-Continue lisinopril 5 mg daily, metoprolol succinate twice daily with hold parameters
#HLD
Patient stopped Crestor 10 mg daily 2 weeks ago
#Former smoker
30 years 1 pack a day quit 10 years ago
DVT prophylaxis�Eliquis
Total time spent to see the patient on the floor, examine the patient, review data and lab results, discuss treatment plan with patient, nursing staff around 50 minutes.
Physical Exam
General: No acute distress
HEENT: Normocephalic, Atraumatic, EOMI, MMM
Respiratory: Clear to Auscultation bilaterally
Cardiac: Normal S1/S2, tachycardic rate, irregularly irregular
GI: distended, appropriately tender, incision dressed
Extremities: No Clubbing, Cyanosis, or Edema
Neuro: Nonfocal/Grossly Intact
Anticipated Discharge: > 48 hours
Subjective/Interval History
-
Date of Service: June 27, 2024
Patient reports nausea, vomiting, and abdominal pain. He is passing gas. Now back in rapid atrial fibrillation. No chest pain, shortness of breath, or palpitations. No fever.
Objective Data
-
Labs:
Laboratory Results
06/27/24 06/27/24
04:27 13:53
WBC 9.5
Hgb 12.0 L
Hct 35.4 L
Plt Count 150
PT 13.6
INR 1.04
APTT 24.6
Sodium 140 Pending
Potassium 4.4 Pending
Chloride 100 Pending
Carbon Dioxide 29 Pending
BUN 20 Pending
Creatinine 0.7 Pending
Glucose 132 H Pending
Calcium 9.5 Pending
Total Bilirubin 0.7
AST 215 H
ALT 412 H
Alkaline Phosphatase 68
Vital Signs:
Vital Signs
Temp Pulse Resp BP Pulse Ox
98.6 F 163 28 135/95 98
06/27/24 12:03 06/27/24 14:02 06/27/24 14:00 06/27/24 14:00 06/27/24 14:00
I&O
06/26/24 06/27/24 06/28/24
06:59 06:59 06:59
Intake Total 1275 / 1275 960 / 960
Output Total 1190 / 1190 250 / 250
Balance 85 / 85 710 / 710
[2024-06-27] MEDS: NSS (PRESERVATIVE FREE) 10 ML IV (14:47)
[2024-06-27] MEDS: PROTONIX IV 40 MG IV (14:47)
[2024-06-27] MEDS: COMPAZINE 10 MG IV (14:54)
[2024-06-27 14:55] LABS: Blood Urea Nitrogen 22 mg/dl (9-20); Calcium 9.9 mg/dl (8.4-10.2); Carbon Dioxide 28 mmol/L (22-30); Chloride 96 mmol/L (98-107); Estimated Creatinine Clearance 102 ml/min; Glucose 182 mg/dl (70-99); Magnesium 2.2 mg/dl (1.6-2.3); Phosphorus 3.7 mg/dl (2.5-4.5); Potassium 4.3 mmol/L (3.5-5.1); Sodium 139 mmol/L (135-145); eGFR > 60.00
--- NOTE | 2024-06-27 15:23 | PTCARENOTE ---
Notified via TT by Dr. Deleon to hold off on the [place] sump per Dr. Good. [place] sump tube to be inserted if he vomits again.
[2024-06-27] MEDS: D5/0.9% with KCL 20 MEQ 1000 IV (16:05)
--- NOTE | 2024-06-27 16:42 | W.PN.UPDATE ---
Update Note
Progress Note Update
Patient now back in SR. Patient with ileus per surgeon. We will keep patient on IV cardiac meds for now. Discussed with Dr. Dunne and plan for IV metoprolol 5 mg PRN, Continue IV amiodarone drip, add IV digoxin 250 mcg daily. Change digoxin and
metoprolol to PO when consistently taking PO medicines.
--- NOTE | 2024-06-27 17:33 | PTCARENOTE ---
informed me that he is non-compliant with his heart medications. His daughter stated that he only started taking them again last month. I was crystal clear to them that he MUST remain compliant with his medications.
--- NOTE | 2024-06-27 19:00 | PTCARENOTE ---
aaox3. nsr. vss. amio infusing per protocol. d5w/nss@50cc/hr, abd distended. awaiting abd xray. pt updated on plan of care. will monitor.
[2024-06-27] MEDS: ELIQUIS 5 MG PO (19:31)
--- NOTE | 2024-06-27 21:57 | PTCARENOTE ---
pt updated on plan of care via phone. pt remains comfortable and asymptomatic.
[2024-06-28] VITALS (38 sets, daily range): BP systolic 110–166; BP diastolic 59–105; BMI 24.1
[2024-06-28 05:54] LABS: Hematocrit 37.9 % (39.0-52.0); Hemoglobin 12.8 g/dL (13.0-18.0); Mean Corp Hgb Conc. 33.8 g/dL (33.0-37.0); Mean Corpuscular Hgb 31.9 pg (27.0-31.0); Mean Corpuscular Volume 94.5 fL (80.0-94.0); Mean Platelet Volume 10.5 fL (7.4-10.4); Platelet Count 175 10^3/uL (130-400); Red Blood Cell Count 4.01 10^6/uL (4.70-6.10); Red Cell Dist. Width 11.9 % (11.5-14.5); White Blood Cell Count 11.1 10^3/uL (4.8-10.8)
[2024-06-28] MEDS: LOPRESSOR 5 MG IV ×2 (06:02→17:21)
[2024-06-28 06:04] LABS: INR 1.12; PT 14.4 Sec (11.4-14.6)
[2024-06-28 06:05] LABS: APTT 29.6 Sec (23.4-35.0)
--- NOTE | 2024-06-28 06:09 | PTCARENOTE ---
hr sinus tach in 140s. pt asymptomatic. 5mg iv Lopressor given. pt now nsr in 60's. will monitor.
[2024-06-28 06:21] LABS: ALT (SGPT) 283 U/L (0-50); AST (SGOT) 101 U/L (17-59); Albumin 3.8 g/dl (3.5-5.0); Alkaline Phosphatase 71 U/L (38-126); Blood Urea Nitrogen 25 mg/dl (9-20); Calcium 9.2 mg/dl (8.4-10.2); Carbon Dioxide 26 mmol/L (22-30); Chloride 103 mmol/L (98-107); Estimated Creatinine Clearance 118 ml/min; Glucose 147 mg/dl (70-99); Potassium 4.4 mmol/L (3.5-5.1); Sodium 140 mmol/L (135-145); Total Bilirubin 0.9 mg/dl (0.2-1.3); Total Protein 6.3 g/dl (6.3-8.2); eGFR > 60.00
[2024-06-28] MEDS: PROTONIX IV 40 MG IV (08:05)
[2024-06-28] MEDS: ELIQUIS 5 MG PO ×2 (08:06→19:07)
[2024-06-28] MEDS: CRESTOR 10 MG PO (08:06)
[2024-06-28] MEDS: ZESTRIL 5 MG PO (08:06)
[2024-06-28] MEDS: NSS (PRESERVATIVE FREE) 10 ML IV (08:06)
[2024-06-28] MEDS: SENOKOT-S 2 TABLET PO ×2 (08:06→19:08)
--- NOTE | 2024-06-28 08:18 | W.PN.INTV ---
Today's Communication / Plan
Recommendations
Amiodarone infusion plus IV digoxin with PO Toprol-XL as per cardiology
prn lopressor
Goal HR <110
Check TSH with reflex to fT4
If need better HR control then will need to start esmolol vs cardioversion if he becomes unstable
Pain control
NPO; if he vomits then insert NGT and place onto LIWS
Re-check AXR tomorrow AM
PT/OT
Maintain SpO2 >90-94%
Patient is stable for downgrade out of ICU to telemetry. Film Numberer/Pulmonary service will now sign off. Please reconsult if there are any additional questions/concerns, or if patient's respiratory status deteriorates.
Assessment
-
Assessment: 73-year-old male with a past medical history of synchronous rectal cancer + prostate cancer (Dx in 2021) s/p total neoadjuvant therapy + chemotherapy/XRT currently on Lupron hypercholesterolemia, dilated cardiomyopathy, and paroxysmal
A-fib on Eliquis who presents for liver resection. Whole-body PET/CT from 12/20/2023 showed a 3.4cm FDG avid lesion in the right hepatic lobe consistent with metastatic disease. On 01/05/[address]-guided liver biopsy which was
consistent with metastatic colorectal adenocarcinoma. Subsequent abdominal MRI on 01/10/2024 showed a solitary posterior right hepatic lobe metastatic lesion measuring up to 3.4 cm with no additional suspicious hepatic lesions. Follow-up MRI of the
abdomen on 04/18/2024 showed interval decrease in size of right hepatic lesion now measuring 1.7 cm. He is chemotherapy is currently on hold for liver resection. He has met with surgical oncologist Dr. Good on 05/24/2024 and reviewed the risks and
benefits of hepatic resection. Today he underwent liver resection with no immediate complications and was transferred to the ICU postoperatively. Film Numberer services now consulted for additional management/recommendations.
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
on Eliquis
Impression:
#Metastatic colorectal adenocarcinoma with liver metastasis s/p segment VII hepatic resection (POD #3)
#Synchronous rectal cancer + prostate cancer (diagnosed in 2021) s/p JAKE + chemotherapy/XRT currently on Lupron
#Rapid A-fib now in NSR with bursts of a-fib
#Abdominal pain with post-operative ileus
#Hx of paroxysmal A-fib (s/p bowel prep for colonoscopy) on Eliquis
#Former tobacco smoker (85-[id number] history, quit March 2014)
#Chronic HFrEF (LVEF: 20-25% via TTE from 04/30/2024)
Plan:
- Postoperative management as per surgical oncology
- Pain control
- Operative report from surgical oncology reviewed
- Aspiration precautions
- Pathology from OR shows adenocarcinoma with deep margins negative for malignancy
- Limit IVF given his chronic systolic CHF
- Cardiology consulted given rapid A-fib on morning of 06/27, and he remains on amiodarone gtt and receiving IV digoxin and PO metoprolol with prn IV lopressor
- Keep K>4, Mg>2 and PO4>3
- Goal HR<110
- Keep MAP>65
- Unable to use cardizem gtt given chronic systolic heart failure; if need rate control then will start esmolol gtt
- Maintain SpO2 >90-94%
- Maintain MAP>65
- Per surgeon Dr. Good, recommend pt to get up OOB and ambulate as tolerated, mainly to help with ileus
- NPO for his ileus, and continue with anti-emetics as needed; if he vomits again then insert NGT (this was reviewed with Dr. Good)
- Check AXR tomorrow to re-assess bowel given ileus seen on 06/27
- Maintain euglycemia with goal BG 140-180
- PT/OT
- prn nebulized bronchodilators - not currently bronchospastic
- Incentive spirometer encouraged 10x per hr for at least 4 hrs a day
- DVT ppx: Eliquis
Of note, given his tobacco smoking history he may qualify for annual LDCT chest for lung cancer screening purposes. However given his active colorectal adenocarcinoma with mets to the liver, unclear if he qualifies for screening. Would defer to
his oncologist (Dr. Baker) in regards to future imaging studies of his chest that are obtained.
Patient is stable for downgrade out of ICU to telemetry. Film Numberer/Pulmonary service will now sign off. Thank you for allowing us to be involved in the care of this patient. Please reconsult if there are any additional questions/concerns, or if
patient's respiratory status deteriorates.
Data:
AXR 06/27/2024:
There is gas in nondilated loops of colon as well as gas in dilated loops of small bowel measuring up to 4.9 cm
The bowel gas pattern is most suggestive of small bowel obstruction.
Given the lack of colonic dilatation, Ileus is less likely but included in the differential diagnosis
Abdominal MRI 04/18/2024:
Interval decrease in size of right hepatic lesion, which was previously biopsied, with pathology indicating metastatic colorectal adenocarcinoma.
Multiple stable hepatic cysts.
The pancreatic duct is slightly dilated within the head and neck of the pancreas, stable. Not mentioned above, there is a 5 mm cystic lesion within the body of the pancreas, which is stable. In a 73-year-old, consider follow-up MRI of the
abdomen/MRCP in 2 years with attention to the pancreas
Total time spent today was 75 minutes for this encounter. Time includes reviewing laboratory test/imaging results, reviewing pertinent medical records, obtaining and reviewing medical history, performing an appropriate exam, ordering medications,
tests and procedures. Time also includes documentation of this encounter, coordinating patient care and communicating with other healthcare professionals. Total time does not include separately billed tests performed on this date of service.
Subjective Dataa
Subjective Data
Date of Service:
Date of Service: June 28, 2024
Chief Complaint: Film Numberer Follow Up
Subjective:
Went into rapid A-fib yesterday and started on amiodarone drip with dig load. AXR revealed ileus. No vomiting overnight. Current vital signs show heart rate 77, BP 131/93 and saturating 96% on room air. Had a burst of rapid A-fib overnight and
treated with IV Lopressor 5 mg with resolution of tachycardia. He feels well currently denying abdominal pain, nausea, vomiting, shortness of breath or chest pain.
Review of Systems
General: Other (Negative unless mentioned above)
Objective Data
Data Reviewed
Vital Signs / I&O / Oxygen:
Vital Signs
Temp Pulse Resp BP Pulse Ox
98.8 F 73 17 137/94 96
06/28/24 08:17 06/28/24 08:06 06/28/24 06:15 06/28/24 08:06 06/27/24 19:15
Intake and Output
06/27/24 06/28/24 06/29/24
06:59 06:59 06:59
Intake Total 960 / 960 766.9 / 766.9
Output Total 250 / 250 400 / 400
Balance 710 / 710 366.9 / 366.9
SaO2 96
Nasal Cannula flow liters per 2
minute
Physical Exam
General: Respiratory Distress (negative), Pain (negative), Chills (negative) and Sweats (negative)
HEENT: Normocephalic and Anicteric
Cardiovascular: S1-S2, Regular Rhythm and Peripheral Edema (negative)
Respiratory: Clear, Wheeze (negative), Crackles (negative), Rhonchi (negative) and Non-Labored Respirations
GI: Soft, Non Distended, Tender (Mildly tender to palpation in the right upper quadrant) and Normal Bowel Sounds
Neurology: AO x 3 and Tremors (negative)
Skin: Warm, Dry and Jaundice (negative)
Labs/Micro/Reports
Lab Data
06/28/24 05:31
06/28/24 05:31
Laboratory Results
06/28/24
05:31
PT 14.4
INR 1.12
APTT 29.6
--- NOTE | 2024-06-28 09:00 | PTCARENOTE ---
pt awake and alert, NSR on monitor with prolong QT , BP 140/83 , on room air sats 98% , pt continues on amiodarone gtt , NPO , hypoactive bowel sounds throughout , abd is distended and tender at surgical site , pt encouraged to get oob , labs noted
--- NOTE | 2024-06-28 09:06 | W.PN.HOSP.TC ---
Today's Communication/Plan
-
Stable for telemetry
Assessment / Plan
Assessment / Plan
HPI: 73-year-old male with a past medical history of prostate cancer, rectal cancer with metastases to the liver, paroxysmal atrial fibrillation on Eliquis, dilated cardiomyopathy, and hypertension was placed in postsurgical observation after having
segment [address] Good on 06/25/24. Patient seen and examined in the PACU. Currently, he does report incisional abdominal pain. He reports having night sweats and intermittent fevers at home, was told that this is from his chemo.
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
#Rectal cancer confirmed via biopsy on 01/05/2024
Appreciate performing arts road manager and Dr. Good
Pain meds, laxatives, PT
Stable for telemetry
#Rapid atrial fibrillation
06/27 PM - Resumed Eliquis
06/28� Back in normal sinus rhythm
Cardiology following, on IV amiodarone, Toprol XL increased to 50 mg twice a day
#Nausea/vomiting/abdominal pain
#Postop ileus
Likely due to postop ileus
N.p.o., IV fluids, PPI IV, antiemetics as needed
#Elevated liver function test/transaminitis
Possibly due to liver resection versus metastatic disease
Continue to trend
#Hx prostate and rectal cancer Dx 2021
#Prostate and rectal cancer Dx 2021 with rectal cancer mets to liver confirmed via biopsy on 01/05/2024
#Prostate cancer status post radiation and chemo 2022
#Rectal cancer status post radiation and chemo 2022
#Liver mets Dx December status post chemo 8 sessions April 2024
-Patient on Lupron every 6 months last FINAL dose he states was on 11/02/2023-he reports he was only to be on for 2 years
#Belching
Maalox as needed
#Hx dilated cardiomyopathy
I/O, daily weights
2D echo 04/03/2024: Severely reduced LV SF, EF 20-25%, mild MR
#HTN
-Continue lisinopril 5 mg daily, metoprolol succinate twice daily with hold parameters
#HLD
Patient stopped Crestor 10 mg daily 2 weeks ago
Hold statin
#Former smoker
30 years 1 pack a day quit 10 years ago
DVT prophylaxis�Eliquis
Total time spent to see the patient on the floor, examine the patient, review data and lab results, discuss treatment plan with patient, nursing staff around 51 minutes.
Physical Exam
General: No acute distress
HEENT: Normocephalic, Atraumatic, EOMI, MMM
Respiratory: Clear to Auscultation bilaterally
Cardiac: Normal S1/S2, RRR
GI: distended, appropriately tender, incision dressed
Extremities: No Clubbing, Cyanosis, or Edema
Neuro: Nonfocal/Grossly Intact
Anticipated Discharge: 24 - 48 hours
Subjective/Interval History
-
Date of Service: June 28, 2024
Patient feels better today. Nausea, vomiting, abdominal pain resolved. He is passing gas. No stool. No chest pain, no palpitations. No fever.
Objective Data
-
Labs:
Laboratory Results
06/28/24
05:31
WBC 11.1 H
Hgb 12.8 L
Hct 37.9 L
Plt Count 175
PT 14.4
INR 1.12
APTT 29.6
Sodium 140
Potassium 4.4
Chloride 103
Carbon Dioxide 26
BUN 25 H
Creatinine 0.6 L
Glucose 147 H
Calcium 9.2
Total Bilirubin 0.9
AST 101 H
ALT 283 H
Alkaline Phosphatase 71
Vital Signs:
Vital Signs
Temp Pulse Resp BP Pulse Ox
98.8 F 73 17 137/94 96
06/28/24 08:17 06/28/24 08:06 06/28/24 06:15 06/28/24 08:06 06/27/24 19:15
I&O
06/27/24 06/28/24 06/29/24
06:59 06:59 06:59
Intake Total 960 / 960 766.9 / 766.9
Output Total 250 / 250 400 / 400
Balance 710 / 710 366.9 / 366.9
--- NOTE | 2024-06-28 09:55 | W.PN.CD ---
Today's Communication / Plan
-
add back Toprol XL
continue IV amiodarone and digoxin today, and change to PO tomorrow
cont eliquis
Impression / Plan
-
Hepatic segment VII tumor status post resection 06/25/[address] Good
-Oncology plans to continue FOLFIRI as outpatient
-now with post op ileus
Paroxysmal atrial fibrillation: with recurrence post op with RVR
-back in sinus on IV amiodarone, requires monitoring on tele
-continue IV until tomorrow, then transition to PO, for 6-8 week post op course
-continue IV digoxin: transition to PO tomorrow
-Oral Anticoagulation: Apixaban 5 mg twice daily has been resumed
-[id number]: Score at least 2 (Heart failure, age 65-74)
Dilated cardiomyopathy, LVEF 20-25%
-Stable without volume overload
-GDMT as tolerated
-Beta-luz: increased Metoprolol succinate to 50 mg BID this admission
-NENITA I/ARB: Lisinopril 5 mg daily; (Entresto was cost prohibitive)
-SGLT2: does not have coverage
-MRA: add aldactone 25mg daily tomorrow
-ICD: TTE 3 months after maximally tolerated GDMT => met cancer may temper enthusiasm for ICD
-Trend daily weight, I/O during admission
Rectal cancer, stage IIIb with liver metastasis, sees Dr. Bkaer in the outpatient setting
Prostate cancer, status post bicalutamide, completed Lupron
Dyslipidemia, on rosuvastatin 10, resume when able
Former smoker, continue cessation recommended
Subjective:
No palps this AM.
DATA:
Transthoracic echocardiogram, 04/30/2024:
Severely reduced left ventricular systolic function.
Left ventricular ejection fraction is 20-25%.
Mild mitral regurgitation.
Right heart pressures could not be determined.
Compared to the previous report 01/26/2024 there is been a reduction in left
ventricular function. Previously estimated 35%.
Physical Exam
Vital Signs/Labs
Vital Signs
Temp Pulse Resp BP Pulse Ox
98.8 F 73 17 137/94 96
06/28/24 08:17 06/28/24 08:06 06/28/24 06:15 06/28/24 08:06 06/27/24 19:15
06/27/24 06/28/24 06/29/24
06:59 06:59 06:59
Actual Weight 81 kg 77.3 kg
06/28/24 05:31
06/28/24 05:31
PT 14.4 Sec (11.4-14.6) 06/28/24 05:31
INR 1.12 06/28/24 05:31
APTT 29.6 Sec (23.4-35.0) 06/28/24 05:31
Magnesium Cancelled 06/27/24 15:25
Physical Exam
Constitutional: No acute distress
EENT: Moist mucous membranes
Cardiovascular: Rhythm & rate is regular, Pedal edema is absent, JVD pressure is normal and Systolic murmur absent
Respiratory: Respiratory effort normal and Lungs clear to auscul.
Neuro/Psych: AO x 3
Data Reviewed
-
Date of Service: June 28, 2024
EKG: Other (A fib--> NSR)
Labs: Labs Reviewed by me
[2024-06-28] MEDS: TOPROL XL 50 MG PO ×2 (10:29→18:07)
[2024-06-28] MEDS: D5/0.9% with KCL 20 MEQ 1000 IV (11:40)
[2024-06-28] MEDS: LANOXIN 250 MCG IV (12:02)
[2024-06-28] MEDS: CORDARONE 518 MG IV (12:40)
--- NOTE | 2024-06-28 12:44 | W.PN.GENERIC ---
Assessment / Plan
-
S/p liver resection. POD #3
Surgicallly stable.
Ileus
not sure the cause. There was no bowel manipulation during the surgery and his electrolytes are WNL
continue NPO and IVF
if he has another day with N/V, will start clears tomorrow
Needs to ambulate
Ok to transfer to the surgical floor when ok with the cardiac team
Physician Progress Note
Subjective
Feeling better. No nausea or vomiting since yesterday. Passing flatus. Currently on amio drip and back on ELiquis. C/o min abd discomfort
Objective
Vital Signs
Temp Pulse Resp BP Pulse Ox
99.6 F 81 17 138/81 96
06/28/24 11:13 06/28/24 12:02 06/28/24 06:15 06/28/24 10:29 06/27/24 19:15
Lab Results
06/28/24 05:31
06/28/24 05:31
Abd - min distention. Incision - CDI
--- NOTE | 2024-06-28 13:00 | PTCARENOTE ---
pt oob for 2 hours in chair , tolerated well, pt seen by cardiology and plan to keep pt on IV amiodrone x one more day , pt and daughter at bedside , pt is passing flatus
--- NOTE | 2024-06-28 15:25 | PTCARENOTE ---
pt oob and walked entire length of hallway x 1 assist without difficulty
--- NOTE | 2024-06-28 16:52 | PTCARENOTE ---
pt now written for telemetry status
--- NOTE | 2024-06-28 17:37 | PTCARENOTE ---
pt had episode of SVT/afib heart rate up to 1480 -150 , at 17:20 , he was given 5mg of IV metroprolol , his heart rate now down to 75 , he is fluctuating between afib and NSR rate 70s to 100
--- NOTE | 2024-06-28 17:59 | PTCARENOTE ---
Dr Moscoso notified and pt to get 2000 dose of oral Metoprolol now
--- NOTE | 2024-06-28 19:10 | PTCARENOTE ---
aaox3. nsr. vss. amio infusing. d5/nss/20k @50cc/hr. abd tnder and distended. +bs. call burger in reach. will monitor.
[2024-06-29] VITALS (22 sets, daily range): BP systolic 128–155; BP diastolic 75–98; PULSE 74–76
[2024-06-29] MEDS: LOPRESSOR 5 MG IV (04:05)
[2024-06-29 04:15] LABS: Hematocrit 32.6 % (39.0-52.0); Hemoglobin 11.2 g/dL (13.0-18.0); Mean Corp Hgb Conc. 34.4 g/dL (33.0-37.0); Mean Corpuscular Hgb 32.7 pg (27.0-31.0); Mean Platelet Volume 10.1 fL (7.4-10.4); Platelet Count 159 10^3/uL (130-400); Red Blood Cell Count 3.43 10^6/uL (4.70-6.10); Red Cell Dist. Width 11.9 % (11.5-14.5); White Blood Cell Count 7.5 10^3/uL (4.8-10.8)
[2024-06-29 04:27] LABS: ALT (SGPT) 185 U/L (0-50); AST (SGOT) 52 U/L (17-59); Albumin 3.4 g/dl (3.5-5.0); Alkaline Phosphatase 61 U/L (38-126); Blood Urea Nitrogen 25 mg/dl (9-20); Carbon Dioxide 28 mmol/L (22-30); Chloride 105 mmol/L (98-107); Estimated Creatinine Clearance 102 ml/min; Glucose 117 mg/dl (70-99); Potassium 4.1 mmol/L (3.5-5.1); Sodium 140 mmol/L (135-145); Total Bilirubin 0.7 mg/dl (0.2-1.3); Total Protein 5.8 g/dl (6.3-8.2); eGFR > 60.00
[2024-06-29 04:32] LABS: APTT 30.8 Sec (23.4-35.0); INR 1.21; PT 15.1 Sec (11.4-14.6)
--- NOTE | 2024-06-29 04:50 | PTCARENOTE ---
pt back in afib. hr 120s. metoprolol iv 5mg given. confirmed afib on ekg. medical staff assistant notified. will monitor.
[2024-06-29 04:59] LABS: TSH Reflex To Free T4 1.01 uIU/ml (0.47-4.68)
[2024-06-29] MEDS: D5/0.9% with KCL 20 MEQ 1000 IV (07:22)
--- NOTE | 2024-06-29 07:34 | W.PN.HOSP.TC ---
Today's Communication/Plan
-
For clear liquids today
Assessment / Plan
Assessment / Plan
HPI: 73-year-old male with a past medical history of prostate cancer, rectal cancer with metastases to the liver, paroxysmal atrial fibrillation on Eliquis, dilated cardiomyopathy, and hypertension was placed in postsurgical observation after having
segment [address] Good on 06/25/24. Patient seen and examined in the PACU. Currently, he does report incisional abdominal pain. He reports having night sweats and intermittent fevers at home, was told that this is from his chemo.
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
#Rectal cancer confirmed via biopsy on 01/05/2024
Appreciate dobby loom fixer and Dr. Good
Pain meds, laxatives, PT
06/28 Stable for telemetry per cards
#Rapid atrial fibrillation
06/27 PM - Resumed Eliquis
06/28� Back in normal sinus rhythm
Cardiology following, on IV amiodarone, Toprol XL increased to 50 mg twice a day
Cardiology recommends switching amiodarone to 400 mg BID for 3 days then 200 mg QD for 6-8 week post op course
Status post IV digoxin
#Nausea/vomiting/abdominal pain
#Postop ileus
Improving, for clear liquids today
Continue IV fluids, PPI IV, antiemetics as needed
#Elevated liver function test/transaminitis
Possibly due to liver resection versus metastatic disease
Continue to trend
#Hx prostate and rectal cancer Dx 2021
#Prostate and rectal cancer Dx 2021 with rectal cancer mets to liver confirmed via biopsy on 01/05/2024
#Prostate cancer status post radiation and chemo 2022
#Rectal cancer status post radiation and chemo 2022
#Liver mets Dx December status post chemo 8 sessions April 2024
-Patient on Lupron every 6 months last FINAL dose he states was on 11/02/2023-he reports he was only to be on for 2 years
#Belching
Maalox as needed
#Hx dilated cardiomyopathy
I/O, daily weights
2D echo 04/03/2024: Severely reduced LV SF, EF 20-25%, mild MR
Started on Aldactone 25 mg daily 06/29
#HTN
-Continue lisinopril 5 mg daily, metoprolol succinate twice daily with hold parameters
-Started on Aldactone 25 mg daily 06/29
#HLD
Patient stopped Crestor 10 mg daily 2 weeks ago
Hold statin
#Former smoker
30 years 1 pack a day quit 10 years ago
DVT prophylaxis�Eliquis
Total time spent to see the patient on the floor, examine the patient, review data and lab results, discuss treatment plan with patient, nursing staff around 50 minutes.
Physical Exam
General: No acute distress
HEENT: Normocephalic, Atraumatic, EOMI, MMM
Respiratory: Clear to Auscultation bilaterally
Cardiac: Normal S1/S2, RRR, +sys murmur
GI: distended, appropriately tender, incision dressed
Extremities: No Clubbing, Cyanosis, or Edema
Neuro: Nonfocal/Grossly Intact
Anticipated Discharge: 24 - 48 hours
Subjective/Interval History
-
Date of Service: June 29, 2024
Feels better today. Abdominal pain tolerable. He is passing gas, no stool. No recurrence of nausea, vomiting. No fever.
Objective Data
-
Labs:
Laboratory Results
06/29/24
04:01
WBC 7.5
Hgb 11.2 L
Hct 32.6 L
Plt Count 159
PT 15.1 H
INR 1.21
APTT 30.8
Sodium 140
Potassium 4.1
Chloride 105
Carbon Dioxide 28
BUN 25 H
Creatinine 0.7
Glucose 117 H
Calcium 9.0
Total Bilirubin 0.7
AST 52
ALT 185 H
Alkaline Phosphatase 61
Vital Signs:
Vital Signs
Temp Pulse Resp BP Pulse Ox
98.9 F 64 17 136/82 98
06/29/24 03:43 06/28/24 20:15 06/28/24 20:15 06/28/24 20:00 06/28/24 08:00
I&O
06/28/24 06/29/24 06/30/24
06:59 06:59 06:59
Intake Total 766.9 / 833.6 1592.4 / 1592.4
Output Total 400 / 400 600 / 600
Balance 366.9 / 433.6 992.4 / 992.4
[2024-06-29] MEDS: ALDACTONE 25 MG PO (08:44)
[2024-06-29] MEDS: SENOKOT-S 2 TABLET PO ×2 (08:44→19:58)
[2024-06-29] MEDS: TOPROL XL 50 MG PO ×2 (08:45→20:05)
[2024-06-29] MEDS: ELIQUIS 5 MG PO ×2 (08:45→19:59)
[2024-06-29] MEDS: ZESTRIL 5 MG PO (08:45)
[2024-06-29] MEDS: NSS (PRESERVATIVE FREE) 10 ML IV (08:45)
[2024-06-29] MEDS: PROTONIX IV 40 MG IV (08:45)
--- NOTE | 2024-06-29 09:14 | W.PN.CD ---
Today's Communication / Plan
-
- Switch Amiodarone to 400 mg BID for 3 days then 200 mg QD for 6-8 week post op course
- Discontinue IV digoxin
- aldactone 25mg daily today
Impression / Plan
-
Hepatic segment VII tumor status post resection 06/25/[address] Good
-Oncology plans to continue FOLFIRI as outpatient
-now with post op ileus
Paroxysmal atrial fibrillation: with recurrence post op with RVR
-back in sinus on IV amiodarone, requires monitoring on tele
-Change to PO, Amiodarone 400 mg BID for 3 days then 200 mg QD for 6-8 week post op course
-Discontinue IV digoxin
-Oral Anticoagulation: Apixaban 5 mg twice daily has been resumed
-[id number]: Score at least 2 (Heart failure, age 65-74)
Dilated cardiomyopathy, LVEF 20-25%
-Stable without volume overload
-GDMT as tolerated
-Beta-luz: increased Metoprolol succinate to 50 mg BID this admission
-NENITA I/ARB: Lisinopril 5 mg daily; (Entresto was cost prohibitive)
-SGLT2: does not have coverage
-MRA: add aldactone 25mg daily today
-ICD: TTE 3 months after maximally tolerated GDMT => met cancer may temper enthusiasm for ICD
-Trend daily weight, I/O during admission
Rectal cancer, stage IIIb with liver metastasis, sees Dr. Baker in the outpatient setting
-s/p Liver resection
Prostate cancer, status post bicalutamide, completed Lupron
Dyslipidemia, on rosuvastatin 10, resume when able
Former smoker, continue cessation recommended
Subjective:
No palps this AM.
DATA:
Transthoracic echocardiogram, 04/30/2024:
Severely reduced left ventricular systolic function.
Left ventricular ejection fraction is 20-25%.
Mild mitral regurgitation.
Right heart pressures could not be determined.
Compared to the previous report 01/26/2024 there is been a reduction in left
ventricular function. Previously estimated 35%.
Physical Exam
Vital Signs/Labs
Vital Signs
Temp Pulse Resp BP Pulse Ox
98.5 F 75 17 135/84 95
06/29/24 07:00 06/29/24 08:44 06/28/24 20:15 06/29/24 08:44 06/29/24 09:04
06/28/24 06/29/24 06/30/24
06:59 06:59 06:59
Actual Weight 77.3 kg
06/29/24 04:01
06/29/24 04:01
PT 15.1 Sec (11.4-14.6) H 06/29/24 04:01
INR 1.21 06/29/24 04:01
APTT 30.8 Sec (23.4-35.0) 06/29/24 04:01
Magnesium Cancelled 06/27/24 15:25
Physical Exam
Constitutional: No acute distress and Comfortable
EENT: Anicteric and Moist mucous membranes
Cardiovascular: Rhythm & rate is regular, Pedal edema is absent, JVD pressure is normal and Systolic murmur present
Respiratory: Respiratory effort normal, Lungs clear to auscul. and Wheeze Absent
GI: Soft, Non tender and Normal bowel sounds
Neuro/Psych: Alert
Data Reviewed
-
Date of Service: June 29, 2024
Medical Decision Making: Reviewed Test Results, Independent Historian Assessment, Test Interpretation and Review of Case with other Provider
EKG: Tracing Personally Visualized and interpreted
Echo: Report Reviewed by me
Labs: Labs Reviewed by me
Old Records: Reviewed
Critical Care Time (in minutes): 32
[2024-06-29] MEDS: PACERONE 400 MG PO ×2 (09:41→19:59)
--- NOTE | 2024-06-29 10:57 | W.PN.GENERIC ---
Assessment / Plan
-
S/p liver resection POD #4
Surgically doing well
LFTs normalizing
no evidence of bleeding
Path - metastatic tumor with clean margins
Ileus
clinically improving
will start clear liq diet
Tsf pt to the surgical floor when ok with cardiac team
Ambulate
Encourage pul toilet.
Physician Progress Note
Subjective
No c/os. Denies N/V/Hiccups/chest pain. Still passing flatus
Objective
Vital Signs
Temp Pulse Resp BP Pulse Ox
98.5 F 78 17 141/79 95
06/29/24 07:00 06/29/24 09:41 06/28/24 20:15 06/29/24 09:41 06/29/24 09:04
Lab Results
06/29/24 04:01
06/29/24 04:01
Abd - soft ND. Incision - CDI
[2024-06-29] MEDS: LANOXIN IV ×2 (12:20→12:38)
[2024-06-30 03:23] VITALS: BP 136/69
[2024-06-30 06:00] VITALS: BMI 24.0
[2024-06-30 06:20] LABS: Hematocrit 32.3 % (39.0-52.0); Hemoglobin 11.3 g/dL (13.0-18.0); Mean Corpuscular Hgb 31.6 pg (27.0-31.0); Mean Corpuscular Volume 90.2 fL (80.0-94.0); Platelet Count 179 10^3/uL (130-400); Red Blood Cell Count 3.58 10^6/uL (4.70-6.10); Red Cell Dist. Width 11.9 % (11.5-14.5)
[2024-06-30 06:33] LABS: ALT (SGPT) 129 U/L (0-50); AST (SGOT) 36 U/L (17-59); Albumin 3.6 g/dl (3.5-5.0); Alkaline Phosphatase 62 U/L (38-126); Blood Urea Nitrogen 22 mg/dl (9-20); Carbon Dioxide 26 mmol/L (22-30); Chloride 104 mmol/L (98-107); Estimated Creatinine Clearance 102 ml/min; Glucose 109 mg/dl (70-99); Potassium 3.7 mmol/L (3.5-5.1); Sodium 141 mmol/L (135-145); Total Bilirubin 0.8 mg/dl (0.2-1.3); eGFR > 60.00
[2024-06-30 07:35] VITALS: BP 149/81
[2024-06-30] MEDS: NSS (PRESERVATIVE FREE) 10 ML IV (07:50)
[2024-06-30] MEDS: ELIQUIS 5 MG PO ×2 (07:50→20:54)
[2024-06-30] MEDS: ALDACTONE 25 MG PO (07:50)
[2024-06-30] MEDS: PACERONE 400 MG PO ×2 (07:51→20:58)
[2024-06-30] MEDS: PROTONIX IV 40 MG IV (07:51)
[2024-06-30] MEDS: TOPROL XL 50 MG PO ×2 (07:52→20:56)
[2024-06-30] MEDS: ZESTRIL 5 MG PO (07:52)
[2024-06-30] MEDS: SENOKOT-S PO ×2 (07:58→20:55)
--- NOTE | 2024-06-30 08:30 | W.PN.HOSP.TC ---
Today's Communication/Plan
-
Patient back under Dr. Good as primary attending, medicine service signing off, please call with any questions or concerns
Assessment / Plan
Assessment / Plan
HPI: 73-year-old male with a past medical history of prostate cancer, rectal cancer with metastases to the liver, paroxysmal atrial fibrillation on Eliquis, dilated cardiomyopathy, and hypertension was placed in postsurgical observation after having
segment [address] Good on 06/25/24. Patient seen and examined in the PACU. Currently, he does report incisional abdominal pain. He reports having night sweats and intermittent fevers at home, was told that this is from his chemo.
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
#Rectal cancer confirmed via biopsy on 01/05/2024
Appreciate mergers and acquisitions manager and Dr. Good
Pain meds, laxatives, PT
06/28 Stable for telemetry per cards
Patient back under Dr. Good as primary attending, medicine service signing off, please call with any questions or concerns
#Rapid atrial fibrillation
06/27 PM - Resumed Eliquis
06/28� Back in normal sinus rhythm
Cardiology following, s/p IV amiodarone, now on amiodarone to 400 mg BID for 3 days then 200 mg QD for 6-8 week post op course
Toprol XL increased to 50 mg twice a day
Status post IV digoxin
#Nausea/vomiting/abdominal pain
#Postop ileus
Tolerating clear liquids, likely can be advanced to full liquids�defer to primary
Continue IV PPI, antiemetics as needed
#Elevated liver function test/transaminitis
Possibly due to liver resection versus metastatic disease
Improving, continue to trend
#Hx prostate and rectal cancer Dx 2021
#Prostate and rectal cancer Dx 2021 with rectal cancer mets to liver confirmed via biopsy on 01/05/2024
#Prostate cancer status post radiation and chemo 2022
#Rectal cancer status post radiation and chemo 2022
#Liver mets Dx December status post chemo 8 sessions April 2024
-Patient on Lupron every 6 months last FINAL dose he states was on 11/02/2023-he reports he was only to be on for 2 years
#Belching
Maalox as needed
#Hx dilated cardiomyopathy
I/O, daily weights
2D echo 04/03/2024: Severely reduced LV SF, EF 20-25%, mild MR
Started on Aldactone 25 mg daily 06/29
#HTN
-Continue lisinopril 5 mg daily, metoprolol succinate twice daily with hold parameters
-Started on Aldactone 25 mg daily 06/29
#HLD
Patient stopped Crestor 10 mg daily 2 weeks ago
Hold statin
#Former smoker
30 years 1 pack a day quit 10 years ago
DVT prophylaxis�Eliquis
Total time spent to see the patient on the floor, examine the patient, review data and lab results, discuss treatment plan with patient, nursing staff around 40 minutes.
Physical Exam
General: No acute distress
HEENT: Normocephalic, Atraumatic, EOMI, MMM
Respiratory: Clear to Auscultation bilaterally
Cardiac: Normal S1/S2, RRR, +sys murmur
GI: distended, appropriately tender, incision dressed
Extremities: No Clubbing, Cyanosis, or Edema
Neuro: Nonfocal/Grossly Intact
Anticipated Discharge: 24 - 48 hours
Subjective/Interval History
-
Date of Service: June 30, 2024
Patient is tolerating his clear liquid diet. He is passing gas and stool. No nausea, no vomiting. Abdominal pain tolerable. No fever.
Objective Data
-
Labs:
Laboratory Results
06/30/24
05:56
WBC 7.0
Hgb 11.3 L
Hct 32.3 L
Plt Count 179
Sodium 141
Potassium 3.7
Chloride 104
Carbon Dioxide 26
BUN 22 H
Creatinine 0.7
Glucose 109 H
Calcium 9.0
Total Bilirubin 0.8
AST 36
ALT 129 H
Alkaline Phosphatase 62
Vital Signs:
Vital Signs
Temp Pulse Resp BP Pulse Ox
99.1 F 67 18 149/81 98
06/30/24 07:35 06/30/24 07:52 06/30/24 07:35 06/30/24 07:52 06/30/24 07:35
I&O
06/29/24 06/30/24 07/01/24
06:59 06:59 06:59
Intake Total 1592.4 / 1592.4 680 / 680
Output Total 600 / 600 400 / 400
Balance 992.4 / 992.4 280 / 280
[2024-06-30 11:10] VITALS: BP 153/81
--- NOTE | 2024-06-30 11:43 | W.PN.GENERIC ---
Assessment / Plan
-
S/p liver resection POD #5
Continue to improve
Ileus appears to have resolved
Will increase diet to regular
OOB and ambulate
Pt is ready to dc home when ok with cardiology service
Physician Progress Note
Subjective
No c/os. Feeling well. No N/V. Tolerating clears and also multiple BMs
Objective
Vital Signs
Temp Pulse Resp BP Pulse Ox
99.4 F 63 16 153/81 97
06/30/24 11:10 06/30/24 11:10 06/30/24 11:10 06/30/24 11:10 06/30/24 11:10
Lab Results
06/30/24 05:56
06/30/24 05:56
Abdomen - soft Nt ND. Incision - CDI
[2024-06-30 15:30] VITALS: BP 138/56
[2024-06-30 19:45] VITALS: BP 147/82
[2024-06-30 23:18] VITALS: BP 138/74
[2024-07-01 03:21] VITALS: BP 129/81
[2024-07-01 05:01] LABS: Mean Corp Hgb Conc. 34.5 g/dL (33.0-37.0); Mean Corpuscular Volume 89.8 fL (80.0-94.0); Platelet Count 149 10^3/uL (130-400); Red Blood Cell Count 3.23 10^6/uL (4.70-6.10); Red Cell Dist. Width 11.9 % (11.5-14.5); White Blood Cell Count 4.3 10^3/uL (4.8-10.8)
[2024-07-01 05:27] LABS: ALT (SGPT) 91 U/L (0-50); AST (SGOT) 28 U/L (17-59); Albumin 3.1 g/dl (3.5-5.0); Alkaline Phosphatase 54 U/L (38-126); Blood Urea Nitrogen 19 mg/dl (9-20); Calcium 8.7 mg/dl (8.4-10.2); Carbon Dioxide 28 mmol/L (22-30); Chloride 102 mmol/L (98-107); Estimated Creatinine Clearance 102 ml/min; Glucose 96 mg/dl (70-99); Potassium 3.8 mmol/L (3.5-5.1); Sodium 137 mmol/L (135-145); Total Bilirubin 0.7 mg/dl (0.2-1.3); Total Protein 5.4 g/dl (6.3-8.2); eGFR > 60.00
[2024-07-01 05:31] VITALS: BMI 23.9
[2024-07-01 07:30] VITALS: BP 149/82
[2024-07-01] MEDS: PACERONE 400 MG PO (08:09)
[2024-07-01] MEDS: TOPROL XL 50 MG PO (08:09)
[2024-07-01] MEDS: ALDACTONE 25 MG PO (08:09)
[2024-07-01] MEDS: PROTONIX 40 MG PO (08:09)
[2024-07-01] MEDS: SENOKOT-S PO (08:09)
[2024-07-01] MEDS: ELIQUIS 5 MG PO (08:09)
[2024-07-01] MEDS: ZESTRIL 5 MG PO (08:10)
--- NOTE | 2024-07-01 10:35 | W.PN.CD ---
Today's Communication / Plan
-
Increased lisinopril to 10 mg, cont spironolactone and metop
OK to discharge from CV perspective
Impression / Plan
-
Hepatic segment VII tumor status post resection 06/25/[address] Good
-Oncology plans to continue FOLFIRI as outpatient
-now with post op ileus
Paroxysmal atrial fibrillation: with recurrence post op with RVR
-back in sinus on IV amiodarone, requires monitoring on tele
-Change to PO, Amiodarone 400 mg BID for 3 days then 200 mg QD for 6-8 week post op course
-Oral Anticoagulation: Apixaban 5 mg twice daily has been resumed
-[id number]: Score at least 2 (Heart failure, age 65-74)
Dilated cardiomyopathy, LVEF 20-25%
-Stable without volume overload
-GDMT as tolerated
-Beta-luz: increased Metoprolol succinate to 50 mg BID this admission
-NENITA I/ARB: INCREASED Lisinopril 10 mg daily; (Entresto was cost prohibitive)
-SGLT2: does not have coverage
-MRA: add aldactone 25mg daily today
-ICD: TTE 3 months after maximally tolerated GDMT => met cancer may temper enthusiasm for ICD
-Trend daily weight, I/O during admission
Rectal cancer, stage IIIb with liver metastasis, sees Dr. Baker in the outpatient setting
-s/p Liver resection
Prostate cancer, status post bicalutamide, completed Lupron
Dyslipidemia, on rosuvastatin 10, resume when able
Former smoker, continue cessation recommended
Subjective:
Feels well looking fwd to D/C
DATA:
Transthoracic echocardiogram, 04/30/2024:
Severely reduced left ventricular systolic function.
Left ventricular ejection fraction is 20-25%.
Mild mitral regurgitation.
Right heart pressures could not be determined.
Compared to the previous report 01/26/2024 there is been a reduction in left
ventricular function. Previously estimated 35%.
Physical Exam
Vital Signs/Labs
Vital Signs
Temp Pulse Resp BP Pulse Ox
98.6 F 66 16 149/82 98
07/01/24 07:30 07/01/24 08:10 07/01/24 07:30 07/01/24 08:10 07/01/24 07:30
06/30/24 07/01/24 07/02/24
06:59 06:59 06:59
Actual Weight 169 lb 6.4 oz 169 lb 1 oz
07/01/24 04:32
07/01/24 04:32
PT 15.1 Sec (11.4-14.6) H 06/29/24 04:01
INR 1.21 06/29/24 04:01
APTT 30.8 Sec (23.4-35.0) 06/29/24 04:01
Magnesium Cancelled 06/27/24 15:25
Physical Exam
Constitutional: No acute distress
EENT: Anicteric
Cardiovascular: Rhythm & rate is regular and Pedal edema is absent
Respiratory: Respiratory effort normal
GI: Soft
Neuro/Psych: AO x 3
Data Reviewed
-
Date of Service: July 01, 2024
EKG: Tracing Personally Visualized and interpreted (sr)
Echo: Report Reviewed by me
Labs: Labs Reviewed by me
--- NOTE | 2024-07-01 11:27 | W.DS.TRANS ---
DC Summary - Physician Gynecologist
-
Discharge Instructions:
Sleep Apnea Risk High
Discharge Diagnosis/Procedures metastatic liver cancer from colon cancer
Diet As tolerated
Activity No strenuous activity
Driving Restrictions Not until seen by your Dr
Bathing Restrictions OK to Shower
Instructions:
Stand-Alone Forms:
Changes to Home Medications: Yes
Discharge Medications:
DC Medications w/original date entered in [facility]
leuprolide acetate (6 month) 45 mg intramuscular syringe kit (Lupron Depot) 3.75 mg IM [id number] Cancer 04/08/22
apixaban 2.5 mg tablet (Eliquis) 5 mg PO BID Blood Clot Prevention/Tx 06/25/24
lidocaine-prilocaine 2.5 %-2.5 % topical cream 1 applic topical PRN PRN numbing 06/25/24
amiodarone 200 mg tablet 400 mg (2 x 200 mg) PO BID Afib #60 tabs 07/01/24
lisinopril 10 mg tablet 10 mg PO DAILY #30 tabs 07/01/24
metoprolol succinate 50 mg tablet,extended release 24 hr 50 mg PO BID HTN #30 tabs 07/01/24
spironolactone 25 mg tablet 25 mg PO DAILY CHF #30 tabs 07/01/24
Home Medication Changes
Pending Results: No
[2024-07-01 11:40] VITALS: BP 125/62
--- NOTE | 2024-07-01 11:53 | CM ---
Reviewed chart, patient cleared for discharge. Met with patient and his at bedside. Reviewed IMM. Patient signed now on chart. Patient's confirmed that she will take patient home.
Plan: Case management will continue to follow and assist with discharge planning. Home.
== END 2024-07-01 13:42 | disposition home or self-care (01) | DRG 406 ==
LOC: 2 SOUTH 08:58
PROVIDERS: Clinical Nurse Specialist Family Health; Family Medicine; ADMITTING PHYSICIAN Surgery; CONSULT PHYSICIAN Internal Medicine Critical Care Medicine; FAMILY PHYSICIAN Nurse Practitioner Family; OTHER PHYSICIAN Internal Medicine Cardiovascular Disease; REFERRING PHYSICIAN Internal Medicine Hematology & Oncology
PROC: 0FB10ZZ Excision of Right Lobe Liver, Open Approach (ICD-10-PCS; 2024-06-25)
DX: C78.7 Secondary malignant neoplasm of liver and intrahepatic bile duct (principal); I42.0 Dilated cardiomyopathy; I50.22 Chronic systolic (congestive) heart failure; I48.0 Paroxysmal atrial fibrillation; I11.0 Hypertensive heart disease with heart failure; E78.00 Pure hypercholesterolemia, unspecified; D63.0 Anemia in neoplastic disease; Z92.3 Personal history of irradiation; Z92.21 Personal history of antineoplastic chemotherapy; Z88.6 Allergy status to analgesic agent; Z87.891 Personal history of nicotine dependence; Z85.46 Personal history of malignant neoplasm of prostate; Z85.048 Personal history of other malignant neoplasm of rectum, rectosigmoid junction, and anus; Z79.01 Long term (current) use of anticoagulants; Z79.899 Other long term (current) drug therapy
CPT/HCPCS: 88307; 88332; 74018; 80048; 80053; 82962; 83036; 83735; 84100; 84443; 85025; 85027; 85610; 85730; 86850; 86900; 86901; 86920; 88331; 88341; 88342; 93005; 97116; 97162; 97164; 97166; 97168; C9250; J1160

== ENCOUNTER → 2024-08-07 13:49 | Outpatient (REF) | payer MEDICARE, OTHER, SELFPAY | LOC: HWRCS 13:49 | PROVIDERS: ATTENDING PHYSICIAN Internal Medicine; FAMILY PHYSICIAN Nurse Practitioner Family | DX: I48.0 Paroxysmal atrial fibrillation (principal); I42.8 Other cardiomyopathies | CPT/HCPCS: 93306 ==

== ENCOUNTER → 2024-08-13 16:10 | Outpatient (REF) | payer MEDICARE, OTHER, SELFPAY ==
[2024-08-13 12:23] LABS: % Basophils 0.2 % (0-2); % Eosinophils 2.3 % (0-6); % Lymphocytes 27.5 % (20.5-51.1); % Monocytes 10.3 % (1.7-9.3); % Neutrophils 59.7 % (42.2-75.2); Absolute Eosinophils 0.1 10^3/uL (0-0.7); Absolute Lymphocytes 1.7 10^3/uL (1.2-3.4); Absolute Monocytes 0.6 10^3/uL (0.1-0.6); Absolute Neutrophils 3.6 10^3/uL (1.4-6.5); Hematocrit 37.3 % (39.0-52.0); Hemoglobin 12.2 g/dL (13.0-18.0); Mean Corp Hgb Conc. 32.7 g/dL (33.0-37.0); Mean Corpuscular Hgb 30.3 pg (27.0-31.0); Mean Corpuscular Volume 92.6 fL (80.0-94.0); Mean Platelet Volume 9.5 fL (7.4-10.4); Platelet Count 212 10^3/uL (130-400); Red Blood Cell Count 4.03 10^6/uL (4.70-6.10); Red Cell Dist. Width 12.3 % (11.5-14.5); White Blood Cell Count 6.1 10^3/uL (4.8-10.8)
[2024-08-13 12:59] LABS: Albumin 4.4 g/dl (3.5-5.0); Chloride 103 mmol/L (98-107); Potassium 4.4 mmol/L (3.5-5.1); Sodium 142 mmol/L (135-145)
[2024-08-13 13:07] LABS: ALT (SGPT) 20 U/L (0-50); AST (SGOT) 23 U/L (17-59); Alkaline Phosphatase 67 U/L (38-126); Blood Urea Nitrogen 24 mg/dl (9-20); Calcium 9.8 mg/dl (8.4-10.2); Carbon Dioxide 29 mmol/L (22-30); Glucose 101 mg/dl (70-99); Total Bilirubin 0.4 mg/dl (0.2-1.3); Total Protein 7.1 g/dl (6.3-8.2); eGFR > 60.00
== END ==
LOC: OIDL 16:10
PROVIDERS: ATTENDING PHYSICIAN Internal Medicine Hematology & Oncology
DX: C20 Malignant neoplasm of rectum (principal); C61 Malignant neoplasm of prostate
CPT/HCPCS: 80053; 85025

== ENCOUNTER → 2024-08-21 11:48 | Outpatient (REF) | payer MEDICARE, OTHER, SELFPAY | LOC: MRI 3T 11:48 | PROVIDERS: ATTENDING PHYSICIAN Surgery; FAMILY PHYSICIAN Nurse Practitioner Family | DX: Z85.048 Personal history of other malignant neoplasm of rectum, rectosigmoid junction, and anus (principal) | CPT/HCPCS: 72197; A9575 ==

== ENCOUNTER → 2024-09-02 15:08 | Outpatient (REF) | payer MEDICARE, OTHER, SELFPAY ==
[2024-09-02 08:54] LABS: % Basophils 0.4 % (0-2); % Eosinophils 0.8 % (0-6); % Immature Granulocytes 2.3 % (0-0.5); % Lymphocytes 13.4 % (20.5-51.1); % Monocytes 8.2 % (1.7-9.3); % Neutrophils 74.9 % (42.2-75.2); Absolute Basophils 0.1 10^3/uL (0-0.2); Absolute Eosinophils 0.1 10^3/uL (0-0.7); Absolute Immature Granulocytes 0.4 10^3/uL (0-0.05); Absolute Lymphocytes 2.1 10^3/uL (1.2-3.4); Absolute Monocytes 1.3 10^3/uL (0.1-0.6); Absolute Neutrophils 11.9 10^3/uL (1.4-6.5); Hematocrit 37.9 % (39.0-52.0); Mean Corp Hgb Conc. 31.7 g/dL (33.0-37.0); Mean Corpuscular Hgb 30.2 pg (27.0-31.0); Mean Corpuscular Volume 95.5 fL (80.0-94.0); Mean Platelet Volume 10.6 fL (7.4-10.4); Nucleated Red Blood Cells % 0 % (-); Platelet Count 142 10^3/uL (130-400); Red Blood Cell Count 3.97 10^6/uL (4.70-6.10); Red Cell Dist. Width 14.6 % (11.5-14.5); White Blood Cell Count 15.9 10^3/uL (4.8-10.8)
[2024-09-02 09:30] LABS: ALT (SGPT) 28 U/L (0-50); AST (SGOT) 24 U/L (17-59); Albumin 4.3 g/dl (3.5-5.0); Alkaline Phosphatase 111 U/L (38-126); Blood Urea Nitrogen 23 mg/dl (9-20); Calcium 9.1 mg/dl (8.4-10.2); Carbon Dioxide 28 mmol/L (22-30); Chloride 103 mmol/L (98-107); Glucose 96 mg/dl (70-99); Potassium 4.3 mmol/L (3.5-5.1); Sodium 141 mmol/L (135-145); Total Bilirubin 0.2 mg/dl (0.2-1.3); eGFR > 60.00
== END ==
LOC: OIDL 15:08
PROVIDERS: ATTENDING PHYSICIAN Internal Medicine Hematology & Oncology
DX: C20 Malignant neoplasm of rectum (principal)
CPT/HCPCS: 80053; 85025

== ENCOUNTER → 2024-09-16 16:02 | Outpatient (REF) | payer MEDICARE, OTHER, SELFPAY ==
[2024-09-16 09:16] LABS: % Basophils 0.9 % (0-2); % Eosinophils 1.9 % (0-6); % Immature Granulocytes 2.7 % (0-0.5); % Lymphocytes 14.5 % (20.5-51.1); % Monocytes 10.6 % (1.7-9.3); % Neutrophils 69.4 % (42.2-75.2); Absolute Basophils 0.1 10^3/uL (0-0.2); Absolute Eosinophils 0.3 10^3/uL (0-0.7); Absolute Immature Granulocytes 0.4 10^3/uL (0-0.05); Absolute Lymphocytes 1.9 10^3/uL (1.2-3.4); Absolute Monocytes 1.4 10^3/uL (0.1-0.6); Absolute Neutrophils 9.1 10^3/uL (1.4-6.5); Hematocrit 33.4 % (39.0-52.0); Hemoglobin 10.4 g/dL (13.0-18.0); Mean Corp Hgb Conc. 31.1 g/dL (33.0-37.0); Mean Corpuscular Hgb 30.4 pg (27.0-31.0); Mean Corpuscular Volume 97.7 fL (80.0-94.0); Mean Platelet Volume 10.4 fL (7.4-10.4); Nucleated Red Blood Cells % 0 % (-); Platelet Count 191 10^3/uL (130-400); Red Blood Cell Count 3.42 10^6/uL (4.70-6.10); Red Cell Dist. Width 15.2 % (11.5-14.5); White Blood Cell Count 13.2 10^3/uL (4.8-10.8)
[2024-09-16 09:24] LABS: ALT (SGPT) 15 U/L (0-50); AST (SGOT) 16 U/L (17-59); Albumin 4.1 g/dl (3.5-5.0); Alkaline Phosphatase 120 U/L (38-126); Blood Urea Nitrogen 26 mg/dl (9-20); Calcium 9.2 mg/dl (8.4-10.2); Carbon Dioxide 26 mmol/L (22-30); Chloride 107 mmol/L (98-107); Glucose 105 mg/dl (70-99); Potassium 4.4 mmol/L (3.5-5.1); Sodium 142 mmol/L (135-145); Total Bilirubin 0.2 mg/dl (0.2-1.3); Total Protein 6.6 g/dl (6.3-8.2); eGFR > 60.00
== END ==
LOC: OIDL 16:02
PROVIDERS: ATTENDING PHYSICIAN Nurse Practitioner Primary Care
DX: C20 Malignant neoplasm of rectum (principal); C61 Malignant neoplasm of prostate
CPT/HCPCS: 80053; 85025

== ENCOUNTER → 2024-10-07 14:11 | Outpatient (REF) | payer MEDICARE, OTHER, SELFPAY ==
[2024-10-07 14:49] LABS: % Basophils 0.3 % (0-2); % Eosinophils 0.4 % (0-6); % Immature Granulocytes 4.6 % (0-0.5); % Lymphocytes 8.9 % (20.5-51.1); % Monocytes 6.2 % (1.7-9.3); % Neutrophils 79.6 % (42.2-75.2); Absolute Basophils 0.1 10^3/uL (0-0.2); Absolute Eosinophils 0.1 10^3/uL (0-0.7); Absolute Immature Granulocytes 0.9 10^3/uL (0-0.05); Absolute Lymphocytes 1.8 10^3/uL (1.2-3.4); Absolute Monocytes 1.2 10^3/uL (0.1-0.6); Absolute Neutrophils 15.6 10^3/uL (1.4-6.5); Hematocrit 31.2 % (39.0-52.0); Hemoglobin 9.9 g/dL (13.0-18.0); Mean Corp Hgb Conc. 31.7 g/dL (33.0-37.0); Mean Corpuscular Volume 97.8 fL (80.0-94.0); Platelet Count 120 10^3/uL (130-400); Red Blood Cell Count 3.19 10^6/uL (4.70-6.10); Red Cell Dist. Width 17.7 % (11.5-14.5); White Blood Cell Count 19.6 10^3/uL (4.8-10.8)
[2024-10-07 15:17] LABS: ALT (SGPT) 24 U/L (0-50); AST (SGOT) 27 U/L (17-59); Albumin 4.1 g/dl (3.5-5.0); Alkaline Phosphatase 146 U/L (38-126); Blood Urea Nitrogen 24 mg/dl (9-20); Calcium 9.1 mg/dl (8.4-10.2); Carbon Dioxide 28 mmol/L (22-30); Chloride 102 mmol/L (98-107); Glucose 81 mg/dl (70-99); Potassium 4.2 mmol/L (3.5-5.1); Sodium 139 mmol/L (135-145); Total Bilirubin 0.2 mg/dl (0.2-1.3); Total Protein 6.6 g/dl (6.3-8.2); eGFR > 60.00
[2024-10-07 15:48] LABS: CEA 1.46 ng/ml; PSA, Total - Diagnostic < 0.06 ng/ml (0.0-4.0)
== END ==
LOC: OIDL 14:11
PROVIDERS: ATTENDING PHYSICIAN Internal Medicine Hematology & Oncology
DX: C20 Malignant neoplasm of rectum (principal); C61 Malignant neoplasm of prostate
CPT/HCPCS: 80053; 82378; 84153; 85025

== ENCOUNTER → 2024-10-09 13:44 | Outpatient (REF) | payer MEDICARE, OTHER, SELFPAY ==
[2024-10-09 10:22] LABS: Iron 81 ug/dl (49-181)
[2024-10-09 10:31] LABS: Percent Saturation 27 % (20-50); Total Iron Binding Capacity 292 ug/dl (261-462)
== END ==
LOC: OIDL 13:44
PROVIDERS: ATTENDING PHYSICIAN Internal Medicine Hematology & Oncology
DX: C20 Malignant neoplasm of rectum (principal)
CPT/HCPCS: 82728; 83540; 83550

== ENCOUNTER → 2024-10-22 09:45 | Outpatient (REF) | payer MEDICARE, OTHER, SELFPAY ==
[2024-10-22 09:54] LABS: % Basophils 0.2 % (0-2); % Eosinophils 0.6 % (0-6); % Immature Granulocytes 1.8 % (0-0.5); % Lymphocytes 9.4 % (20.5-51.1); % Monocytes 7.5 % (1.7-9.3); % Neutrophils 80.5 % (42.2-75.2); Absolute Eosinophils 0.1 10^3/uL (0-0.7); Absolute Immature Granulocytes 0.3 10^3/uL (0-0.05); Absolute Lymphocytes 1.5 10^3/uL (1.2-3.4); Absolute Monocytes 1.2 10^3/uL (0.1-0.6); Absolute Neutrophils 13.1 10^3/uL (1.4-6.5); Hematocrit 31.6 % (39.0-52.0); Hemoglobin 9.9 g/dL (13.0-18.0); Mean Corp Hgb Conc. 31.3 g/dL (33.0-37.0); Mean Corpuscular Hgb 31.8 pg (27.0-31.0); Mean Corpuscular Volume 101.6 fL (80.0-94.0); Mean Platelet Volume 9.9 fL (7.4-10.4); Platelet Count 160 10^3/uL (130-400); Red Blood Cell Count 3.11 10^6/uL (4.70-6.10); Red Cell Dist. Width 18.3 % (11.5-14.5); White Blood Cell Count 16.2 10^3/uL (4.8-10.8)
[2024-10-22 11:44] LABS: ALT (SGPT) 14 U/L (0-50); AST (SGOT) 18 U/L (17-59); Albumin 4.1 g/dl (3.5-5.0); Alkaline Phosphatase 152 U/L (38-126); Blood Urea Nitrogen 22 mg/dl (9-20); Calcium 8.8 mg/dl (8.4-10.2); Carbon Dioxide 29 mmol/L (22-30); Chloride 105 mmol/L (98-107); Glucose 88 mg/dl (70-99); Potassium 4.2 mmol/L (3.5-5.1); Sodium 142 mmol/L (135-145); Total Bilirubin 0.3 mg/dl (0.2-1.3); Total Protein 6.4 g/dl (6.3-8.2); eGFR > 60.00
== END ==
LOC: OIDL 09:45
PROVIDERS: ATTENDING PHYSICIAN Internal Medicine Hematology & Oncology
DX: C20 Malignant neoplasm of rectum (principal)
CPT/HCPCS: 80053; 85025

== ENCOUNTER → 2024-11-14 12:04 | Outpatient (REF) | payer MEDICARE, OTHER, SELFPAY ==
[2024-11-14 09:15] LABS: % Basophils 0.5 % (0-2); % Eosinophils 0.6 % (0-6); % Immature Granulocytes 0.5 % (0-0.5); % Lymphocytes 17.6 % (20.5-51.1); % Monocytes 8.1 % (1.7-9.3); % Neutrophils 72.7 % (42.2-75.2); Absolute Eosinophils 0.1 10^3/uL (0-0.7); Absolute Lymphocytes 1.5 10^3/uL (1.2-3.4); Absolute Monocytes 0.7 10^3/uL (0.1-0.6); Absolute Neutrophils 6.3 10^3/uL (1.4-6.5); Hematocrit 33.9 % (39.0-52.0); Hemoglobin 10.9 g/dL (13.0-18.0); Mean Corp Hgb Conc. 32.2 g/dL (33.0-37.0); Mean Corpuscular Hgb 32.7 pg (27.0-31.0); Mean Corpuscular Volume 101.8 fL (80.0-94.0); Mean Platelet Volume 9.8 fL (7.4-10.4); Platelet Count 160 10^3/uL (130-400); Red Blood Cell Count 3.33 10^6/uL (4.70-6.10); Red Cell Dist. Width 16.8 % (11.5-14.5); White Blood Cell Count 8.6 10^3/uL (4.8-10.8)
[2024-11-14 09:51] LABS: ALT (SGPT) 21 U/L (0-50); AST (SGOT) 20 U/L (17-59); Alkaline Phosphatase 117 U/L (38-126); Blood Urea Nitrogen 23 mg/dl (9-20); Calcium 8.8 mg/dl (8.4-10.2); Carbon Dioxide 27 mmol/L (22-30); Chloride 106 mmol/L (98-107); Glucose 105 mg/dl (70-99); Potassium 4.5 mmol/L (3.5-5.1); Sodium 139 mmol/L (135-145); Total Bilirubin 0.4 mg/dl (0.2-1.3); Total Protein 6.6 g/dl (6.3-8.2); eGFR > 60.00
== END ==
LOC: OIDL 12:04
PROVIDERS: ATTENDING PHYSICIAN Internal Medicine Hematology & Oncology
DX: C20 Malignant neoplasm of rectum (principal)
CPT/HCPCS: 80053; 85025

== ENCOUNTER → 2025-08-07 09:34 | Outpatient (REF) | payer MEDICARE, OTHER, SELFPAY | LOC: RCS 09:34 | PROVIDERS: ATTENDING PHYSICIAN Internal Medicine; FAMILY PHYSICIAN Nurse Practitioner Family | DX: I42.8 Other cardiomyopathies (principal); I48.0 Paroxysmal atrial fibrillation; I49.3 Ventricular premature depolarization | CPT/HCPCS: 93306; 93356 ==

== ENCOUNTER 2025-08-18 06:44 | Day surgery (SDC) | payer MEDICARE, OTHER, SELFPAY ==
[2025-08-18 07:21] VITALS: BMI 24.7
== END 2025-08-18 09:42 | disposition home or self-care (01) ==
LOC: CATH 06:44
PROVIDERS: ATTENDING PHYSICIAN Internal Medicine Cardiovascular Disease; FAMILY PHYSICIAN Nurse Practitioner Family; OTHER PHYSICIAN Internal Medicine
DX: I48.0 Paroxysmal atrial fibrillation (principal); I42.9 Cardiomyopathy, unspecified; I49.1 Atrial premature depolarization; Z79.01 Long term (current) use of anticoagulants; I08.1 Rheumatic disorders of both mitral and tricuspid valves
CPT/HCPCS: 93312; 93320; 93325; 92960; 93005

== ENCOUNTER → 2025-09-29 08:45 | Outpatient (REF) | payer MEDICARE, OTHER, SELFPAY ==
[2025-09-29 09:37] LABS: Hematocrit 39.6 % (39.0-52.0); Hemoglobin 13.3 g/dL (13.0-18.0); Mean Corp Hgb Conc. 33.6 g/dL (33.0-37.0); Mean Corpuscular Volume 91.5 fL (80.0-94.0); Nucleated Red Blood Cells % 0 % (-); Platelet Count 212 10^3/uL (130-400); Red Cell Dist. Width 13.2 % (11.5-14.5)
[2025-09-29 10:16] LABS: ALT (SGPT) 38 U/L (0-50); AST (SGOT) 25 U/L (17-59); Albumin 4.4 g/dl (3.5-5.0); Alkaline Phosphatase 72 U/L (38-126); Blood Urea Nitrogen 21 mg/dl (9-20); Calcium 9.4 mg/dl (8.4-10.2); Carbon Dioxide 25 mmol/L (22-30); Chloride 105 mmol/L (98-107); Glucose 86 mg/dl (70-99); Potassium 4.6 mmol/L (3.5-5.1); Sodium 138 mmol/L (135-145); Total Protein 7.3 g/dl (6.3-8.2); eGFR > 60.00
== END ==
LOC: SDSPAT 08:45
PROVIDERS: ATTENDING PHYSICIAN Internal Medicine Cardiovascular Disease; FAMILY PHYSICIAN Nurse Practitioner Family; OTHER PHYSICIAN Internal Medicine
DX: I48.19 Other persistent atrial fibrillation (principal)
CPT/HCPCS: 36415; 80053; 85025; 86850; 86900; 86901; 93005